=== PATIENT | female | born 1970 | race Caucasian/White ===

== ENCOUNTER 2019-04-22 18:55 | Emergency (ER) | payer MEDICARE, MEDICAID, SELFPAY | END 2019-04-22 20:05 | disposition home or self-care (01) | PROVIDERS: Emergency Provider Emergency Medicine; Visit Provider Emergency Medicine | DX: T82.898A Other specified complication of vascular prosthetic devices, implants and grafts, initial encounter (principal); Z91.040 Latex allergy status; Z88.0 Allergy status to penicillin | CPT/HCPCS: 96372; 99284; J0690 ==

== ENCOUNTER 2019-05-19 19:08 | Emergency (ER) | payer MEDICARE, MEDICAID, SELFPAY ==
[2019-05-19] VITALS (20 sets, daily range): BP systolic 113–185; BP diastolic 71–129; PULSE 103–152; RESP 15–40; TEMP 37.6–39.6; O2SAT 90–96; BMI 27.1
--- NOTE | 2019-05-19 19:21 | ED_ITS ---
Entered by Esperanza Link, acting as scribe for Bruce Noel DO May 19, 2019 19:08 HPI - Fever General: Chief Complaint: Fever Stated Complaint: fever Time Seen by Provider: 05/19/19 19:26 Source: patient and EMS Mode of arrival: EMS Limitations: no limitations History of Present Illness: HPI Narrative: 49 yo f came to the er by [facility] for fever. Onset was today. Pt states that she has a fever, head and neck pain, nauseated and has had some chest pain. Onset was 4 hours ago. Pt states that she has the chills as well. MD elicited complaint: fever Pertinent past history: sepsis Onset (ago): hour(s) (4 hours ago) Associated symptoms: Reports chills, chest pain, nausea and other (head and neck pain ); Deny abdominal pain, confusion, cough, dysuria, headache(s), sinus pain or vomiting Treatments prior to arrival fever: other (norco) Review of Systems Const: Reports: chills Eyes: Denies: change in vision or blurry vision ENMT: Denies: facial/sinus pain Card: Reports: chest pain Resp: Denies: shortness of breath, productive cough, non-productive cough or wheezing GI: Reports: nausea; Denies: abdominal pain or vomiting : Denies: painful urination Musc: Denies: neck pain, back pain, redness or joint warmth Skin/Breast: Denies: rash, itching or redness Neuro: Denies: headache or confusion Psych: Denies: anxiety, visual hallucinations or auditory hallucinations PFSH ED PFSH: Statuses (acute, chronic, etc) shown below reflect problem list status as previously entered and may not be historically accurate Medical History (Updated 05/19/19 @ 23:52 by Bruce Noel DO) Bunion (Acute) Degenerative joint disease (Acute) DVT (deep venous thrombosis) (Acute) FH: cholecystectomy (Acute) Hernia (Acute) Interstitial cystitis (Acute) Neuropathy (Acute) Ovarian cyst (Acute) Peripheral neuropathy (Acute) Pulmonary embolism (Acute) Sepsis (Acute) Spastic colon (Acute) Surgical History (Updated 05/19/19 @ 19:37 by Esperanza Link) History of bilateral salpingectomy (Acute) History of hernia repair (Acute) History of knee surgery (Acute) History of laparoscopy (Acute) History of oophorectomy (Acute) History of salpingectomy (Acute) Hx of appendectomy (Acute) Physical Exam Const: GENERAL APPEARANCE: well developed ORIENTATION/CONSCIOUSNESS: Yes oriented to person, Yes oriented to place and Yes oriented to time HENMT: COMMON NORMALS: normocephalic, external ears normal and external nose normal HEAD & SCALP: normocephalic; no scalp tenderness FACE & SINUS: normal facial exam NOSE: external nose normal and no nasal discharge EXTERNAL EAR: Yes external ears normal THROAT: posterior oropharynx normal Eye: COMMON NORMALS: PERRL, EOMs intact bilaterally and conjunctivae normal EYELID: eyelids normal CONJUNCTIVA: Yes conjunctivae normal PUPIL: Yes PERRL Neck/C-Spine: COMMON NORMALS: full ROM and no meningeal signs GENERAL: No tracheal deviation Chest: COMMONS NORMALS: inspection of chest normal CHEST: No tenderness Resp: COMMON NORMALS: clear to auscultation bilaterally EFFORT & INSPECTION: No tachypneic, No respiratory distress, No retractions, No uses accessory muscles and No tracheal deviation AUSCULTATION: clear to auscultation bilaterally, no rhonchi, no wheezes and lung sounds not diminished Cardio: COMMON NORMALS: regular rhythm; negative for regular rate RATE: abnormal rate and tachycardic RHYTHM: regular rhythm HEART SOUNDS: no murmurs PERIPHERAL PULSES: radial pulses present GI: INSPECTION: No abdominal distension AUSCULTATION: No hyperactive bowel sounds and No hypoactive bowel sounds PALPATION: No guarding and No rigid PERCUSSION: no dullness to percussion and no tympanic to percussion : COMMON NORMALS: Yes no CVA tenderness BLADDER/KIDNEY EXAM: Yes no CVA tenderness Back/Pelvis: COMMON NORMALS: no CVA tenderness Neuro: SENSORIUM/ORIENTATION: Yes oriented to person, Yes oriented to place and Yes oriented to time MENINGEAL SIGNS: Yes no meningeal signs and No nuccal rigidity SPEECH: speech normal MOTOR EXAM: other (moves all extremities well) Psych: COMMON NORMALS: mental status grossly normal Skin: COMMON NORMALS: no rashes or lesions noted GENERAL SKIN EXAM: no rashes or lesions noted OTHER: Dry mucous membrane Course ED course: 49-year-old female with multiple medical problems comes in with a fever. She has pain all over. She does not have any meningeal signs. Fever was 103 on arrival, reduced to 99.7 with Tylenol. Her symptoms are improved. She is had a liter and a half of fluid. Her white count is 6.2. No left shift. Flu swabs are negative. Chest x-ray is negative, urine negative. She has had sepsis in the past. She does have an indwelling line. It does not appear infected. Blood cultures have been drawn and are pending. She will go home on doxycycline. Vital Signs: Vital signs: Vital Signs Temperature 99.7 F H 05/19/19 23:21 Pulse Rate 100 05/20/19 00:15 Respiratory Rate 16 05/20/19 00:15 Blood Pressure 113/71 05/20/19 00:15 Pulse Oximetry 99 05/20/19 00:15 MDM - Fever Lab Data: Labs: Lab Results 05/19/19 05/19/19 05/19/19 Range/Units 20:00 20:00 20:00 WBC 6.2 (4.0-10.0) 10^3/ uL RBC 4.57 (4.1-5.3) 10^6/u L Hgb 14.1 (11.5-15.3) g/dL Hct 41.8 (37.0-47.0) % MCV 91.5 (81-99) fL MCH 30.9 (28.0-34.0) pg MCHC 33.7 (30.0-36.0) g/dL RDW 12.0 L (12.1-15.1) % Plt Count 165 (130-400) 10^3/c mm MPV 10.2 (7.4-10.4) fL Neut % (Auto) 88.2 % Lymph % (Auto) 7.6 % [place] % (Auto) 3.4 % Eos % (Auto) 0.3 % Baso % (Auto) 0.2 % Neut # (Auto) 5.5 (1.8-7.7) 10^3/u L Lymph # (Auto) 0.5 L (0.8-4.8) 10^3/u L [place] # (Auto) 0.2 (0.2-0.9) 10^3/u L Eos # (Auto) 0.0 (0.0-0.8) 10^3/u L Baso # (Auto) 0.0 (0.0-0.1) 10^3/u L Nucleated RBC % (a uto) 0 % Nucleated RBCs # 0.0 /100WBC Sodium 139 (136-145) mmol/L Potassium 4.0 (3.5-5.1) mmol/L Chloride 100 (98-107) mmol/L Carbon Dioxide 22 (22-29) mmol/L Anion Gap 21.0 H (5-19) BUN 8 (6-20) mg/dL Creatinine 0.7 (0.5-0.9) mg/dL GFR Calculation 89.3 L (90-130) mL/min Glucose 124 H (74-109) mg/dL Lactate 2.3 H (0.5-2.2) mmol/L Calcium 10.2 (8.5-10.5) mg/dL Total Bilirubin 0.4 (0.15-1.2) mg/dL AST 13 (0-32) U/L ALT 23 (0-33) U/L Alkaline Phosphata se 100 (35-105) IU/L C-Reactive Protein 6.5 H (0.0-4.9) mg/L Total Protein 8.2 (6.6-8.7) g/dL Albumin 4.7 (3.5-5.2) g/dL Globulin 3.5 (1.3-4.6) g/dL Urine Color (Yellow) Urine Appearance (CLEAR) Urine pH (5-7) Ur Specific Gravit y (1.005-1.030) Urine Protein (Negative) Urine Glucose (UA) (Normal) Urine Ketones (Negative) Urine Occult Blood (Negative) Urine Nitrate (Negative) Urine Bilirubin (NEGATIVE) Urine Urobilinogen (Negative) mg/dL Ur Leukocyte Nisha ase (Negative) Influenza Type A A g (Negative) POC Influenza B Ag (Negative) 05/19/19 05/19/19 Range/Units 21:02 21:45 WBC (4.0-10.0) 10^3/ uL RBC (4.1-5.3) 10^6/u L Hgb (11.5-15.3) g/dL Hct (37.0-47.0) % MCV (81-99) fL MCH (28.0-34.0) pg MCHC (30.0-36.0) g/dL RDW (12.1-15.1) % Plt Count (130-400) 10^3/c mm MPV (7.4-10.4) fL Neut % (Auto) % Lymph % (Auto) % [place] % (Auto) % Eos % (Auto) % Baso % (Auto) % Neut # (Auto) (1.8-7.7) 10^3/u L Lymph # (Auto) (0.8-4.8) 10^3/u L [place] # (Auto) (0.2-0.9) 10^3/u L Eos # (Auto) (0.0-0.8) 10^3/u L Baso # (Auto) (0.0-0.1) 10^3/u L Nucleated RBC % (a uto) % Nucleated RBCs # /100WBC Sodium (136-145) mmol/L Potassium (3.5-5.1) mmol/L Chloride (98-107) mmol/L Carbon Dioxide (22-29) mmol/L Anion Gap (5-19) BUN (6-20) mg/dL Creatinine (0.5-0.9) mg/dL GFR Calculation (90-130) mL/min Glucose (74-109) mg/dL Lactate (0.5-2.2) mmol/L Calcium (8.5-10.5) mg/dL Total Bilirubin (0.15-1.2) mg/dL AST (0-32) U/L ALT (0-33) U/L Alkaline Phosphata se (35-105) IU/L C-Reactive Protein (0.0-4.9) mg/L Total Protein (6.6-8.7) g/dL Albumin (3.5-5.2) g/dL Globulin (1.3-4.6) g/dL Urine Color Yellow (Yellow) Urine Appearance Clear (CLEAR) Urine pH 5 (5-7) Ur Specific Gravit y 1.015 (1.005-1.030) Urine Protein Neg (Negative) Urine Glucose (UA) Norm (Normal) Urine Ketones Negative (Negative) Urine Occult Blood Neg (Negative) Urine Nitrate Negative (Negative) Urine Bilirubin Neg (NEGATIVE) Urine Urobilinogen Norm (Negative) mg/dL Ur Leukocyte Nisha ase Negative (Negative) Influenza Type A A g Negative (Negative) POC Influenza B Ag Negative (Negative) Discharge Plan Discharge Patient Disposition: Home, Self-Care Clinical Impression: Febrile illness, acute Condition: Stable Prescriptions: New doxycycline hyclate 100 mg capsule 100 mg PO Q12H 10 Days Qty: 20 RF: 0 No Action oxybutynin chloride 10 mg Tablet Extended Release 24hr 10 mg PO DAILY RF: 0 metoprolol succinate 50 mg Tablet Extended Release 24 Hr 50 mg PO DAILY RF: 0 ondansetron HCl 4 mg Tablet 4 mg PO Q6H PRN (Reason: Nausea) RF: 0 clonazepam 0.5 mg Tablet 0.5 mg PO BID RF: 0 hydrocodone-acetaminophen 10-325 mg Tablet 1 tab PO Q6H PRN (Reason: Pain) RF: 0 levothyroxine 75 mcg Tablet 75 mcg PO DAILY RF: 0 promethazine 25 mg Tablet 25 mg PO Q4-5H PRN (Reason: Nausea) RF: 0 tizanidine 4 mg Capsule 4 mg PO QID PRN (Reason: Sleep) RF: 0 Discharge Orders: Discharge Order (Routine); Ordered 05/19/19 Ordered By: Bruce Noel Referrals: Xavier Salmeron MD [Primary Care Provider] - 1-3 days Discharge Diet: Advance as tolerated Discharge Activity: Increase activity as tolerated Patient Instructions: Fever - Adult Activity Restrictions/Additional Instructions: Check your temperature frequently. Treat by alternating Tylenol and ibuprofen. Make sure you are taking in plenty of fluids. Antibiotics as directed. Return for fever despite 2-3 doses of antibiotics at home vomiting liquids or medications, mental status changes, other concerning symptoms. Discharge Date/Time: 05/20/19 00:16 Coding Level of Care Code ED [employer]er for Chg Fwd The documentation recorded by the Nikolay ambrocio Stephanie Lyn, accurately reflects the service I personally performed and the decisions made by Bert wheeler Jeremy John, DO May 19, 2019 19:08
--- NOTE | 2019-05-19 19:26 | XR_ITS ---
WS: [id number] CHEST XRAY TECHNIQUE: Portable chest. CLINICAL INFORMATION: fever COMPARISON: 9 019 FINDINGS: Stable right IJ Groshong catheter. Heart: Normal cardiac silhouette. Lungs: Chronic emphysematous changes. No acute pulmonary infiltrates. Surgical clips left neck. Bones: Normal visualized bony structures. XR/XR chest 1V portable [id number] IMPRESSION: 1. Stable right IJ Groshong catheter. 2. Chest otherwise unremarkable.
--- NOTE | 2019-05-19 19:28 | ECG_ITS ---
Measurements Intervals [place] Rate: 117 P: 65 TN: 100 QRS: 25 QRSD: 90 T: 28 QT: 320 QTc: 448 SINUS TACHYCARDIA WITH SHORT TN INTERVAL ABNORMAL RHYTHM ECG Compared to ECG 11/14/2018 15:51:26 Short TN interval now present Sinus rhythm no longer present T-wave abnormality no longer present Electronically Signed On 05-20-2019 17:51:34 [employer] TECHNICIAN by Kacey Urbina M.D. [email or web address]
[2019-05-19] MEDS: sodium chloride 0.9% 1,000 ML 999 ML IV ×2 (20:03→22:44)
[2019-05-19 20:06] LABS: Basophils % 0.2 %; Eosinophils % 0.3 %; Hematocrit 41.8 % (37.0-47.0); Hemoglobin 14.1 g/dL (11.5-15.3); Lymphocytes # 0.5 10^3/uL (0.8-4.8); Lymphocytes % 7.6 %; Mean Corpuscular HGB Conc 33.7 g/dL (30.0-36.0); Mean Corpuscular Hemoglobin 30.9 pg (28.0-34.0); Mean Corpuscular Volume 91.5 fL (81-99); Mean Platelet Volume 10.2 fL (7.4-10.4); Monocytes # 0.2 10^3/uL (0.2-0.9); Monocytes % 3.4 %; Neutrophils # 5.5 10^3/uL (1.8-7.7); Neutrophils % 88.2 %; Nucleated Red Blood Cells % 0 %; Platelet Count 165 10^3/cmm (130-400); Red Blood Count 4.57 10^6/uL (4.1-5.3); White Blood Count 6.2 10^3/uL (4.0-10.0)
[2019-05-19] MEDS: metoprolol tartrate 1 mg/1 mL SDV 5 mL 5 MG IV (20:06)
[2019-05-19] MEDS: acetaminophen 500 mg Tablet 1000 MG PO (20:06)
[2019-05-19] MEDS: ondansetron 2 mg/ML SDV 2 mL 4 MG IVP ×2 (20:13→22:44)
[2019-05-19 20:20] LABS: Alanine Aminotransferase 23 U/L (0-33); Albumin Level 4.7 g/dL (3.5-5.2); Alkaline Phosphatase 100 IU/L (35-105); Aspartate Amino Transferase 13 U/L (0-32); Blood Urea Nitrogen 8 mg/dL (6-20); C Reactive Protein 6.5 mg/L (0.0-4.9); Calcium 10.2 mg/dL (8.5-10.5); Carbon Dioxide 22 mmol/L (22-29); Chloride 100 mmol/L (98-107); Globulin 3.5 g/dL (1.3-4.6); Glomerular Filtration Rate 89.3 mL/min (90-130); Glucose 124 mg/dL (74-109); Lactate (Lactic Acid level) 2.3 mmol/L (0.5-2.2); Sodium 139 mmol/L (136-145); Total Bilirubin 0.4 mg/dL (0.15-1.2); Total Protein 8.2 g/dL (6.6-8.7)
[2019-05-19] MEDS: morphine 4 mg/mL SDV 1 mL IVP ×2 (20:30→22:43)
[2019-05-19 21:31] LABS: Influenza A by IFA Negative (Negative); Influenza B by IFA Negative (Negative)
[2019-05-19 22:40] LABS: Add Urine Microscopic? NO
[2019-05-19 22:49] LABS: Blood Urine Neg (Negative); Glucose Urine UA Norm (Normal); Ketones Urine Negative (Negative); Nitrate Urine Negative (Negative); Protein Urine Neg (Negative); Specific Gravity, Urine 1.015 (1.005-1.030); Urine Appearance Clear (CLEAR); Urine Color Yellow (Yellow); pH Urine 5 (5-7)
[2019-05-19 22:50] LABS: Bilirubin Urine Neg (NEGATIVE); Leukocyte Esterase Urine Negative (Negative); Urobilinogen Urine Norm (Negative)
[2019-05-20 00:15] VITALS: BP 113/71; PULSE 100; RESP 16; O2SAT 99
--- NOTE | 2019-05-21 05:33 | PC.NURSE ---
Lab called about blood culture, lab stated they will call back with another positive culture when read, Advised Dr. Jack of gram positive rods in 1 of 4 blood culture bottles, advised to wait for other culture to come back
== END 2019-05-20 00:16 | disposition home or self-care (01) ==
PROVIDERS: Emergency Provider Emergency Medicine; PCP Internal Medicine
DX: R50.9 Fever, unspecified (principal)
CPT/HCPCS: 36415; 71045; 80053; 81003; 83605; 85025; 86140; 87040; 87077; 87184; 87205; 87804; 93005; 96374; 99283; J2270; J2405; J3490; J7030

== ENCOUNTER 2019-05-21 10:21 | Inpatient (IN) | payer MEDICARE, MEDICAID, SELFPAY ==
[2019-05-21] VITALS (10 sets, daily range): BP systolic 111–132; BP diastolic 73–84; PULSE 70–144; RESP 16–22; TEMP 37–39.5; O2SAT 92–99; BMI 27.3
--- NOTE | 2019-05-21 10:57 | XR_ITS ---
WS: [id number] PORTABLE CHEST HISTORY: fever COMPARISON: 05/19/2019 RIGHT IJ Groshong catheter is again identified. Lungs remain clear. No mediastinal widening. Surgical sutures are noted within the LEFT neck. No pleural effusion or pneu mothorax. Cardiac size: Normal. Mediastinum/Aorta: Normal mediastinum. No osseous abnormality seen. XR/XR chest 1V portable [id number] IMPRESSION: Stable chest with no acute cardiopulmonary disease.
--- NOTE | 2019-05-21 11:03 | ED_ITS ---
HPI - Fever General: Chief Complaint: Fever Stated Complaint: Fever/V/Pain all over Time Seen by Provider: 05/21/19 10:51 History of Present Illness: HPI Narrative: Patient comes in today for high fever. Patient was referred to the emergency department by Dr. Alegria for concerns that her central line may be infected. Patient has a central line in place due to gastroparesis and need for TPN. Patient reports only being able to hold down 1 of the doxycycline that was prescribed on the [address] Noel. Patient reports persistent nausea and vomiting since being seen in the ER for her fever at that time. Patient appears unwell. Patient appears in no pain. MD elicited complaint: fever Associated symptoms: Reports nausea and vomiting Review of Systems General: Reports: 10 or more systems reviewed and unremarkable except in HPI and below Const: Reports: fever GI: Reports: nausea and vomiting PFSH ED PFSH: Statuses (acute, chronic, etc) shown below reflect problem list status as previously entered and may not be historically accurate Medical History (Updated 05/21/19 @ 13:30 by MEL Baker) Bunion (Acute) Degenerative joint disease (Acute) DVT (deep venous thrombosis) (Acute) FH: cholecystectomy (Acute) Hernia (Acute) Interstitial cystitis (Acute) Neuropathy (Acute) Ovarian cyst (Acute) Peripheral neuropathy (Acute) Pulmonary embolism (Acute) Sepsis (Acute) Spastic colon (Acute) Surgical History (Updated 05/19/19 @ 19:37 by Esperanza Link) History of bilateral salpingectomy (Acute) History of hernia repair (Acute) History of knee surgery (Acute) History of laparoscopy (Acute) History of oophorectomy (Acute) History of salpingectomy (Acute) Hx of appendectomy (Acute) Social History Smoking and tobacco status: current every day smoker Physical Exam Const: COMMON NORMALS: no apparent distress and oriented x3 GENERAL APPEARANCE: cooperative HENMT: COMMON NORMALS: normocephalic, external ears normal, EAC's normal, TM's normal bilaterally and external nose normal HEAD & SCALP: normal to inspection and normocephalic FACE & SINUS: normal facial exam NOSE: external nose normal GENERAL EAR: hearing not grossly impaired EXTERNAL EAR: Yes external ears normal EXTERNAL AUDITORY CANAL: EAC's normal TYMPANIC MEMBRANE: TM's normal bilaterally MOUTH: oral and palatal mucosa normal THROAT: posterior oropharynx normal Eye: COMMON NORMALS: PERRL and EOMs intact bilaterally PUPIL: Yes PERRL Neck/C-Spine: COMMON NORMALS: full ROM and no lymphadenopathy Lymph: LYMPHATIC: no lymphedema noted Chest: COMMONS NORMALS: inspection of chest normal and palpation of chest normal Resp: COMMON NORMALS: normal respiratory effort and clear to auscultation bilaterally AUSCULTATION: clear to auscultation bilaterally Cardio: COMMON NORMALS: regular rate and regular rhythm RATE: regular rate RHYTHM: regular rhythm GI: COMMON NORMALS: normal to inspection, nondistended, normoactive bowel sounds and non-tender : COMMON NORMALS: Yes no CVA tenderness BLADDER/KIDNEY EXAM: Yes no CVA tenderness Back/Pelvis: COMMON NORMALS: no CVA tenderness and thoracic and lumbar spine normal to inspection Extremity: COMMON NORMALS: normal to inspection GENERAL: No edema Neuro: COMMON NORMALS: oriented x3, moves all extremities and no focal motor deficits Psych: COMMON NORMALS: mental status grossly normal and cooperative Skin: COMMON NORMALS: no rashes or lesions noted GENERAL SKIN EXAM: no rashes or lesions noted Course ED course: 1115, reviewed with Dr. Piper, recommended Levaquin for IV antibiotic due to allergy to vancomycin and penicillin. Patient alert and oriented. Patient appears mildly unwell. 1140, review of record note preliminary blood culture from 05/19 note gram positive walter. wjw 1157, paged Dr. Alegria to discuss central line and his recommendation for further treatment. wjw 1235, reviewed with Dr. Alegria who agreed that removal of central line be done, wjw 1253, talked with Dr. Maguire whom agreed to admission for patient to inpatient. wjw 1315, attempted removal of central line met resistance with suggestion of adhesion. Dr. Piper evaluated and attempted removal with no success. Dr. Alegria consulted and will see patient later today in hospital for removal. Dr. Maguire notified for admission and update on difficulty with removal of central line. wjw Vital Signs: Vital signs: Vital Signs Temperature 102.5 F H 05/21/19 12:28 Pulse Rate 125 H 05/21/19 12:00 Respiratory Rate 16 05/21/19 13:00 Blood Pressure 132/84 05/21/19 12:00 Pulse Oximetry 92 05/21/19 12:00 MDM - Fever MDM Narrative: Medical decision making narrative: Patient comes in today for complaints of persistent fever and nausea with vomiting. Patient appears mildly unwell. Exam notes respirations are even lungs are clear to auscultation. Vital signs are stable with some mild tachycardia and fever. Abdomen is soft and nontender. Skin is warm and dry. Differential diagnosis includes sepsis, infection in the central line, pneumonia, urinary tract infection, febrile illness of unknown origin. Blood cultures were collected. Reviewed exam with Dr. Piper who recommended admission for possible septicemia due to central line. Dr. Alegria was consulted for assistance to remove central line due to adhesions. Dr. Staton was consulted for hospitalist care and admission. Patient needs admission for IV antibiotics, and surgical consult for removal of central line. Patient will need IV fluids and repeat laboratory evaluation. Lab Data: Labs: Lab Results 05/21/19 05/21/19 05/21/19 Range/Units 11:02 11:02 11:02 WBC (4.0-10.0) 10^3/ uL RBC (4.1-5.3) 10^6/u L Hgb (11.5-15.3) g/dL Hct (37.0-47.0) % MCV (81-99) fL MCH (28.0-34.0) pg MCHC (30.0-36.0) g/dL RDW (12.1-15.1) % Plt Count (130-400) 10^3/c mm MPV (7.4-10.4) fL Neut % (Auto) % Lymph % (Auto) % [place] % (Auto) % Eos % (Auto) % Baso % (Auto) % Neut # (Auto) (1.8-7.7) 10^3/u L Lymph # (Auto) (0.8-4.8) 10^3/u L [place] # (Auto) (0.2-0.9) 10^3/u L Eos # (Auto) (0.0-0.8) 10^3/u L Baso # (Auto) (0.0-0.1) 10^3/u L Nucleated RBC % (a uto) % Nucleated RBCs # /100WBC Sodium (136-145) mmol/L Potassium (3.5-5.1) mmol/L Chloride (98-107) mmol/L Carbon Dioxide (22-29) mmol/L Anion Gap (5-19) BUN (6-20) mg/dL Creatinine (0.5-0.9) mg/dL GFR Calculation (90-130) mL/min Glucose (74-109) mg/dL Lactic Acid (0.5-2.2) mmol/L Calcium (8.5-10.5) mg/dL Total Bilirubin (0.15-1.2) mg/dL AST (0-32) U/L ALT (0-33) U/L Alkaline Phosphata se (35-105) IU/L Total Protein (6.6-8.7) g/dL Albumin (3.5-5.2) g/dL Globulin (1.3-4.6) g/dL Urine Color Yellow (Yellow) Urine Appearance Clear (CLEAR) Urine pH 5.0 (5-7) Ur Specific Gravit y 1.010 (1.005-1.030) Urine Protein Neg (Negative) Urine Glucose (UA) Norm (Normal) Urine Ketones Negative (Negative) Urine Occult Blood Neg (Negative) Urine Nitrate Negative (Negative) Urine Bilirubin Neg (NEGATIVE) Urine Urobilinogen Norm (Negative) mg/dL Ur Leukocyte Nisha ase Negative (Negative) Urine RBC 0-4 H (0-2) /hpf Urine WBC None (0-5) /hpf Ur Squamous Epith Cells 10-15 H (0-5) Urine Bacteria 1+ H (NONE) Urine Mucus 1+ Influenza Type A A g Negative (Negative) POC Influenza B Ag Negative (Negative) Group A Strep Rapi d Negative (Negative) 05/21/19 05/21/19 05/21/19 Range/Units 11:17 11:17 12:18 WBC 5.5 (4.0-10.0) 10^3/ uL RBC 4.55 (4.1-5.3) 10^6/u L Hgb 13.9 (11.5-15.3) g/dL Hct 42.1 (37.0-47.0) % MCV 92.5 (81-99) fL MCH 30.5 (28.0-34.0) pg MCHC 33.0 (30.0-36.0) g/dL RDW 12.2 (12.1-15.1) % Plt Count 103 L (130-400) 10^3/c mm MPV 10.9 H (7.4-10.4) fL Neut % (Auto) 88.0 % Lymph % (Auto) 7.0 % [place] % (Auto) 4.4 % Eos % (Auto) 0.2 % Baso % (Auto) 0.2 % Neut # (Auto) 4.8 (1.8-7.7) 10^3/u L Lymph # (Auto) 0.4 L (0.8-4.8) 10^3/u L [place] # (Auto) 0.2 (0.2-0.9) 10^3/u L Eos # (Auto) 0.0 (0.0-0.8) 10^3/u L Baso # (Auto) 0.0 (0.0-0.1) 10^3/u L Nucleated RBC % (a uto) 0 % Nucleated RBCs # 0.0 /100WBC Sodium 136 (136-145) mmol/L Potassium 4.5 (3.5-5.1) mmol/L Chloride 100 (98-107) mmol/L Carbon Dioxide 21 L (22-29) mmol/L Anion Gap 19.5 H (5-19) BUN 8 (6-20) mg/dL Creatinine 0.6 (0.5-0.9) mg/dL GFR Calculation 106.7 (90-130) mL/min Glucose 130 H (74-109) mg/dL Lactic Acid 0.6 (0.5-2.2) mmol/L Calcium 9.9 (8.5-10.5) mg/dL Total Bilirubin 0.6 (0.15-1.2) mg/dL AST 17 (0-32) U/L ALT 25 (0-33) U/L Alkaline Phosphata se 84 (35-105) IU/L Total Protein 8.2 (6.6-8.7) g/dL Albumin 3.9 (3.5-5.2) g/dL Globulin 4.3 (1.3-4.6) g/dL Urine Color (Yellow) Urine Appearance (CLEAR) Urine pH (5-7) Ur Specific Gravit y (1.005-1.030) Urine Protein (Negative) Urine Glucose (UA) (Normal) Urine Ketones (Negative) Urine Occult Blood (Negative) Urine Nitrate (Negative) Urine Bilirubin (NEGATIVE) Urine Urobilinogen (Negative) mg/dL Ur Leukocyte Nisha ase (Negative) Urine RBC (0-2) /hpf Urine WBC (0-5) /hpf Ur Squamous Epith Cells (0-5) Urine Bacteria (NONE) Urine Mucus Influenza Type A A g (Negative) POC Influenza B Ag (Negative) Group A Strep Rapi d (Negative) Discharge Plan Discharge Patient Disposition: Admitted As Inpatient Clinical Impression: Sepsis Qualifiers: Sepsis type: sepsis due to unspecified organism Sepsis acute organ dysfunction status: without acute organ dysfunction Qualified Code(s): A41.9 - Sepsis, unspecified organism Condition: Stable Referrals: Xavier Salmeron MD [Primary Care Provider] - Coding Level of Care Code ED Maintenance Of Way Superintendent for Chg Fwd Exam Problem Focused
[2019-05-21 11:29] LABS: Basophils % 0.2 %; Eosinophils % 0.2 %; Hematocrit 42.1 % (37.0-47.0); Hemoglobin 13.9 g/dL (11.5-15.3); Lymphocytes # 0.4 10^3/uL (0.8-4.8); Mean Corpuscular Hemoglobin 30.5 pg (28.0-34.0); Mean Corpuscular Volume 92.5 fL (81-99); Mean Platelet Volume 10.9 fL (7.4-10.4); Monocytes # 0.2 10^3/uL (0.2-0.9); Monocytes % 4.4 %; Neutrophils # 4.8 10^3/uL (1.8-7.7); Nucleated Red Blood Cells % 0 %; Platelet Count 103 10^3/cmm (130-400); Red Blood Count 4.55 10^6/uL (4.1-5.3); Red Cell Distribution Width 12.2 % (12.1-15.1); White Blood Count 5.5 10^3/uL (4.0-10.0)
[2019-05-21 11:43] LABS: Alanine Aminotransferase 25 U/L (0-33); Albumin Level 3.9 g/dL (3.5-5.2); Alkaline Phosphatase 84 IU/L (35-105); Anion Gap 19.5 (5-19); Blood Urea Nitrogen 8 mg/dL (6-20); Calcium 9.9 mg/dL (8.5-10.5); Carbon Dioxide 21 mmol/L (22-29); Chloride 100 mmol/L (98-107); Globulin 4.3 g/dL (1.3-4.6); Glomerular Filtration Rate 106.7 mL/min (90-130); Glucose 130 mg/dL (74-109); Potassium 4.5 mmol/L (3.5-5.1); Sodium 136 mmol/L (136-145); Total Bilirubin 0.6 mg/dL (0.15-1.2); Total Protein 8.2 g/dL (6.6-8.7)
[2019-05-21] MEDS: sodium chloride 0.9% 1,000 ML 999 ML IV ×2 (11:43→13:00)
[2019-05-21] MEDS: levofloxacin-dextrose 5 % 750 MG/150 ML PREMIX 100 MG IV (11:44)
[2019-05-21] MEDS: ketorolac 30 mg/mL INJ 15 MG IVP (11:44)
[2019-05-21] MEDS: ondansetron 2 mg/ML SDV 2 mL 4 MG IVP ×3 (11:44→23:20)
[2019-05-21] MEDS: fentaNYL 50 mcg/mL INJ 2mL 25 MCG IVP (11:44)
[2019-05-21 11:49] LABS: Aspartate Amino Transferase 17 U/L (0-32)
[2019-05-21 11:50] LABS: Bilirubin Urine Neg (NEGATIVE); Blood Urine Neg (Negative); Glucose Urine UA Norm (Normal); Ketones Urine Negative (Negative); Leukocyte Esterase Urine Negative (Negative); Nitrate Urine Negative (Negative); Protein Urine Neg (Negative); Urine Appearance Clear (CLEAR); Urine Color Yellow (Yellow); Urobilinogen Urine Norm (Negative)
[2019-05-21 11:52] LABS: Add Urine Culture? No; Bacteria Urine 1+; Mucus Urine 1+; RBC Urine 0-4 /hpf (0-2)
[2019-05-21 11:56] LABS: Rapid Strep A Test Negative (Negative)
[2019-05-21 12:08] LABS: Influenza A by IFA Negative (Negative); Influenza B by IFA Negative (Negative)
[2019-05-21 12:46] LABS: Lactic Sepsis W/Reflex 0.6 mmol/L (0.5-2.2)
[2019-05-21] MEDS: fentaNYL 50 mcg/mL INJ 2mL IVP (13:00)
--- NOTE | 2019-05-21 13:56 | PM.HP ---
Providers/Chief Complaint Primary Care Provider: Xavier Salmeron MD Chief Complaint: Fever/V/Pain all over History of Present Illness Bing Chatman is a 49 year old female with past medical history of gastroparesis, frequent episodes of dehydration, intermittent hypotension, hypertension for which usually takes metoprolol and lisinopril, PE and DVT, on chronic anticoagulation, recurrent episodes of sepsis in the past because of port infections. On review of her culture history she has had infections with Enterobacter, MRSA, micrococcus with most recent infection last year in June. Today patient comes to the ER complaining of high-grade fevers with nausea and vomiting along with chills and [place] since Monday. Patient complains of generalized myalgia along with feeling weak since Monday. She states this Monday when she was changing the dressing of her port she expressed some foul-smelling greenish colored fluid from the port entry site. Patient has a central light port which was placed for her in July 2018 for fluid replacement at home. In July patient was also on TPN but has not been on TPN for last 7 to 8 months. Patient denies of having any dizziness, loss of consciousness, dysuria, change in her bowel movements, abdominal pain, swelling in any of her limbs, dizziness, headache, photophobia. Patient states she has not been able to take her medications for over a month as she ran out of the medications. Patient is struggling to find a primary care physician. Review of Systems Const: Reports: fever, chills, body aches, malaise and night sweats; Denies: change in appetite, diaphoresis, change in sleep pattern, daytime sleepiness or snoring Eyes: Denies: change in vision, blurry vision, photophobia, eye discomfort or eye discharge ENMT: Denies: throat pain, enlarged tonsils, hoarseness, mouth pain, oral sores/lesions, dry mouth, tinnitus, nasal congestion or post nasal drip Card: Reports: palpitations; Denies: chest pain, irregular heart rhythm, edema, swelling of feet/ankles, lightheadedness, syncope, pre-syncope, shortness of breath on exertion, shortness of breath when lying down, leg pain with exertion or bluish discoloration of hands/feet Resp: Denies: shortness of breath, productive cough, non-productive cough, wheezing, stridor, pain on inspiration, change in phlegm color, coughing up blood or chest congestion GI: Reports: abdominal pain, nausea, vomiting and heartburn/indigestion; Denies: vomiting blood, coffee grounds in vomit, difficulty swallowing, diarrhea, constipation, bloating, cramping, change in bowel habits, painful bowel movements, blood in stool or black tarry stool : Denies: flank pain, painful urination, urinary frequency, urinary urgency, urinary hesitancy, nighttime urination or blood in urine Musc: Denies: neck pain, back pain, extremity pain, joint pain, joint swelling, redness, joint stiffness or limited range of motion Neuro: Denies: headache, numbness in extremities, weakness in extremities, changes in sensation, lack of coordination, difficulty walking, frequent falls, dizziness, vertigo, confusion, slurred speech, difficulty communicating thoughts or seizure-like activity Psych: Reports: anxiety; Denies: depression, mood swings, panic attacks, hopelessness or irritability Endo: Denies: excessive urination, excessive thirst, tired all the time, cold intolerance, excessive sweating, flushing or heat intolerance Adolph/Lymph: Denies: easy bruising or easy bleeding All/Imm: Denies: tongue swelling, facial swelling or acute wheezing Medications/Allergies Home Medications Medication Instructions Recorded Confirmed Last Taken Type apixaban [Eliquis] 5 mg PO BID 05/21/19 05/21/19 Unknown History lisinopril 40 mg PO DAILY 05/21/19 05/21/19 Unknown History omeprazole 40 mg PO QAM 05/21/19 05/21/19 05/19/19 History Allergies Allergy/AdvReac Type Severity Reaction Status Date / Time adhesive tape Allergy ALGY-Hives Verified 05/19/19 19:32 clindamycin Allergy ALGY-Hives Verified 05/19/19 19:32 latex Allergy ALGY-Hives Verified 05/19/19 19:32 metronidazole [From Flagyl] Allergy ALGY-Hives Verified 05/19/19 19:32 Penicillins Allergy ALGY-Anaphy Verified 05/19/19 19:32 laxis sumatriptan [From Imitrex] Allergy ALGY-Anaphy Verified 05/19/19 19:32 laxis vancomycin Allergy ALGY-Hives Verified 05/19/19 19:32 PFSH Acute PFSH: Statuses (acute, chronic, etc) shown below reflect problem list status as previously entered and may not be historically accurate Medical History (Updated 05/21/19 @ 15:24 by Moreno Hollins MD) Bunion (Inactive) Degenerative joint disease (Inactive) DVT (deep venous thrombosis) (Acute) FH: cholecystectomy (Inactive) Gastroparesis (Acute) Interstitial cystitis (Acute) Ovarian cyst (Inactive) Peripheral neuropathy (Acute) Pulmonary embolism (Acute) Sepsis (Acute) Spastic colon (Inactive) Surgical History (Updated 05/21/19 @ 15:24 by Moreno Hollins MD) History of bilateral salpingectomy (Inactive) History of hernia repair (Inactive) History of knee surgery (Inactive) History of laparoscopy (Inactive) History of oophorectomy (Inactive) History of salpingectomy (Resolved) Hx of appendectomy (Inactive) Social History Smoking and tobacco status: current every day smoker Vitals/I&O/Wt Last Vital Signs Temp 102.5 F H 05/21/19 12:28 Pulse 125 H 05/21/19 12:00 Resp 16 05/21/19 13:00 BP 132/84 05/21/19 12:00 Pulse Ox 92 05/21/19 12:00 05/20/19 05/21/19 05/21/19 22:59 06:59 14:59 Intake Total 1150 / 1150 Balance 1150 / 1150 Weight last 48 hrs Weight 65.771 kg Physical Exam Narrative: EXAM NARRATIVE: General: No acute distress, AO x3, febrile HEENT: PERRLA, pupils bilaterally equal and reactive Chest: Normal vesicular breath sounds, no added sounds, equal good air entry bilaterally. Patient has a central line port present in the right side of her chest. Mild fluctuance present below the central line placement. CVS: S1-S2 regular, no murmurs, no tachycardia, no gallops, no rubs Abdomen: Soft, nontender, no organomegaly, bowel sounds present Neuro: No focal deficits, no facial deformity, AO x3, power 5/5 in all limbs Data : 05/21/19 11:17 05/21/19 11:17 Micro: Microbiology 05/21/19 11:17 Blood Culture - Preliminary Blood SPECIMEN COLLECTED 05/21/19 11:13 Blood Culture - Preliminary Blood SPECIMEN COLLECTED A&P Assessment and plan (1) Sepsis: Status: Acute Qualifiers: Sepsis acute organ dysfunction status: without acute organ dysfunction Sepsis type: sepsis due to unspecified organism Qualified Code(s): A41.9 - Sepsis, unspecified organism Code(s): A41.9 - Sepsis, unspecified organism (2) Central line infection: Status: Acute Code(s): T80.219A - Unspecified infection due to central venous catheter, initial encounter (3) Gastroparesis: Status: Acute Code(s): K31.84 - Gastroparesis Additional A&P Information Sepsis most likely due to central infection.: Patient is having high-grade fevers, source of infection most likely central line as resolving pus, tachycardia, tachypnea. Patient's blood pressure is stable so not in septic shock. We will start patient on D5 NS at 75 cc/h. Stat blood cultures, procalcitonin, urinalysis, urine culture, lactate. Central line was tried to be taken out by the ER physician but were unsuccessful. Dr. Alegria from surgery has already been contacted for central line removal. We will go for a prompt central line removal and sent the central line tip for further cultures. On reviewing the culture history will start patient on imipenem and vancomycin both renally dosed. Discussed with patient regarding vancomycin allergies. She states she used it around 6 years ago and at that time she had some hives. We will give vancomycin to try and can use Benadryl along with vancomycin. Gastroparesis: Unsure of the cause. We will continue with Zofran and promethazine as required. IV fluid resuscitation as described above. We will start her on bland diet. Hypothyroidism: Check TSH. Continue on home dose of levothyroxine. Hypertension: Blood pressures are within normal limits. For now continue patient on lisinopril and metoprolol at home dose. History of DVT and PE: Patient states she has not taken her medication for over a month. We will check lower limb Dopplers. Patient is not having any shortness of breath and her saturations are normal so we will hold off on any CTA for now. Resume Eliquis at 5 mg twice daily. Social service consult for PCP, outpatient medication. Full code Eliquis will help with DVT prophylaxis [place] brat diet. Attestations Medical Necessity Statement*: Would most likely need admission for more than 2 midnights for central line infection causing sepsis. Time Spent in Patient Care: Greater than 35 minutes Coding Level of Care Code Acute Railroad Track Inspector for Chg Fwd Diagnoses Sepsis A41.9 Sepsis acute organ dysfunction status: without acute organ dysfunction Sepsis type: sepsis due to unspecified organism Central line infection T80.219A Gastroparesis K31.84
--- NOTE | 2019-05-21 14:26 | USCV_ITS ---
Bing Chatman Age: 49 Gender: F : 1970 Exam Date: 05/21/2019 14:51 Ordering Phys: Moreno Hollins MD Technologist: Alex Estes [place]am [place] [facility] [place]: DVT HISTORY: DVT. PROCEDURES: Venous duplex imaging was performed in bilateral lower extremities. The following venous structures were evaluated: common femoral vein, profunda vein, proximal portion of the greater saphenous vein, superficial femoral vein, and the popliteal vein. In addition, the posterior tibial and peroneal trunk were evaluated. Serial compression, augmentation maneuvers, and spectral Doppler flow evaluation were performed. FINDINGS: Normal 2-D Doppler and augmentation and compressibility throughout the lower extremity venous structures. Additional imaging through the proximal calf veins also reveals no thrombus. Limited evaluation of the greater saphenous vein is patent with no thrombus. CONCLUSIONS No DVT bilateral lower extremities. Dr. Ashly Cruz DO (Electronically Signed) Final Date: 21 May 2019 15:41 S
--- NOTE | 2019-05-21 14:26 | USCV_ITS ---
Bing Chatman Age: 49 Gender: F : 1970 Exam Date: 05/21/2019 14:59 Ordering Phys: Moreno Hollins MD Technologist: Alex Estes Exam Location: [facility] – [place] Indication: IE BP: 132 / 83 HR: 112 Rhythm: Sinus Technical Quality: MEASUREMENTS (Male / Female) Normal Values 2D ECHO LV Diastolic Diameter PLAX 3.5 cm 4.2 - 5.9 / 3.9 - 5.3 cm LV Systolic Diameter PLAX 1.9 cm IVS Diastolic Thickness 0.8 cm 0.6 - 1.0 / 0.6 - 0.9 cm IVS Systolic Thickness 0.9 cm LVPW Diastolic Thickness 1.0 cm 0.6 - 1.0 / 0.6 - 0.9 cm LVPW Systolic Thickness 1.2 cm LVOT Diameter 2.0 cm LV Ejection Fraction 2D Teich 78.7 % LV Ejection Fraction MOD 2C 80.7 % LV Ejection Fraction 2C AL 81.5 % LA Diameter 2.6 cm LA Width 2.8 cm LA Height 4.0 cm RA Width 2.7 cm RA Height 3.6 cm Aorta at Sinotubular Diameter 1.7 cm M-MODE LV Diastolic Diameter MM 4.8 cm 4.2 - 5.9 / 3.9 - 5.3 cm LV Systolic Diameter MM 3.5 cm LV Ejection Fraction MM Teich 53.8 % IVS Diastolic Thickness MM 0.9 cm 0.6 - 1.0 / 0.6 - 0.9 cm IVS Systolic Thickness MM 1.4 cm LVPW Diastolic Thickness MM 1.1 cm 0.6 - 1.0 / 0.6 - 0.9 cm LVPW Systolic Thickness MM 1.7 cm RV Diastolic Diameter MM 1.2 cm Aortic Annulus Diameter 3.1 cm LA Ao Ratio MM 0.8 MV E Point Septal Separation 0.8 cm DOPPLER AV Peak Velocity 164.0 cm/s LVOT Peak Velocity 92.0 cm/s AV Area Cont Eq vti 1.6 cm squared AV Area Cont Eq pk 1.7 cm squared MV Area PHT 5.0 cm squared Mitral E to A Ratio 0.9 MV E' Velocity 16.0 cm/s Mitral E to MV E' Ratio 5.2 Mitral E to LV E' Lateral Ratio 5.4 Mitral E to LV E' Septal Ratio 5.1 TR Peak Velocity 196.0 cm/s TR Peak Gradient 15.3 mmHg TV Peak E Velocity 84.0 cm/s Right Atrial Pressure 3.0 mmHg Pulmonary Artery Systolic Pressu 18.4 mmHg FINDINGS Left Ventricle Normal left ventricular cavity size. Normal left ventricular systolic function. No regional wall motion abnormalities. Left ventricular ejection fraction is estimated at 55 %. Normal diastolic function. Right Ventricle The right ventricle is normal in size and function. Right Atrium The right atrium is normal in size. Left Atrium The left atrium is normal in size. Mitral Valve Structurally normal mitral valve without significant stenosis or prolapse. There is no mitral regurgitation. Aortic Valve Mild aortic valve calcification. No aortic valve stenosis. Trace aortic valve regurgitation. Tricuspid Valve Structurally normal tricuspid valve without significant stenosis or regurgitation. Pulmonary artery systolic pressure is normal. Pulmonic Valve Structurally normal pulmonic valve without significant stenosis. There is no pulmonic regurgitation. Pericardium Normal pericardium without effusion. Aorta Normal ascending aorta dimension. CONCLUSIONS 1-Normal left ventricular cavity size. Normal left ventricular systolic function. No regional wall motion abnormalities. Left ventricular ejection fraction is estimated at 55 %. Normal diastolic function. 2-Mild aortic valve calcification. No aortic valve stenosis. Trace aortic valve regurgitation. 3-Structurally normal mitral valve without significant stenosis or prolapse. There is no mitral regurgitation. 4-Structurally normal tricuspid valve without significant stenosis or regurgitation. Pulmonary artery systolic pressure is normal. 5-There is no pericardial effusion. 6-Pulmonary artery systolic pressure is within normal limits. 7-Right atrial pressure is around 5 mm of mercury. 8-There are no prior echocardiogram studies to compare. Kacey Urbina MD (Electronically Signed) Final Date: 21 May 2019 21:02 S
[2019-05-21] MEDS: LORazepam 2 mg/mL INJ 1 mL 1 MG IVP (14:56)
[2019-05-21 15:09] LABS: Lactic Sepsis W/Reflex 0.7 mmol/L (0.5-2.2)
[2019-05-21 15:15] LABS: Procalcitonin 2.52 ng/mL (0-0.5)
[2019-05-21 15:26] LABS: Iron 15 ug/dL (37-145); Percent Saturation 5.4 % (20-50); Total Iron Binding Capacity 274 mcg/dl; Unsaturated Iron Binding 259 ug/dL (112-347)
[2019-05-21] MEDS: diphenhydrAMINE 50 mg/mL SDV 1mL 12.5 MG IVP (16:41)
[2019-05-21] MEDS: HYDROcodone-acetaminophen 5-325 mg Tablet 1 TAB PO ×2 (16:42→21:16)
[2019-05-21] MEDS: CLONazepam 0.5 mg Tablet PO (18:43)
[2019-05-21] MEDS: apixaban 5 mg Tablet PO (18:43)
[2019-05-21] MEDS: promethazine 25 mg/mL SDV 1 mL 12.5 MG IM (19:41)
[2019-05-21 23:10] LABS: Thyroid Stimulating Hormone 1.23 uIU/mL (0.27-4.20)
[2019-05-21] MEDS: dextrose 5%-sod chloride 0.9% 1,000 ML 75 ML IV (23:13)
[2019-05-22] LABS: Amphetamines Screen Urine Negative (Negative); Barbiturates Screen Urine Negative (Negative); Benzodiazepines Screen Urine Negative (Negative); Cocaine Screen Urine Negative (Negative); Opiate Screen Urine Positive (Negative); PCP Screen Urine Negative (Negative); THC Screen Urine Negative (Negative)
[2019-05-22] MEDS: TRAMadol 50 mg Tablet PO (01:00)
[2019-05-22 01:30] VITALS: O2SAT 95
[2019-05-22 04:00] VITALS: BP 98/65; PULSE 83; RESP 22; TEMP 36.8; O2SAT 95
[2019-05-22] MEDS: HYDROcodone-acetaminophen 5-325 mg Tablet 1 TAB PO ×4 (05:08→20:45)
[2019-05-22] MEDS: promethazine 25 mg/mL SDV 1 mL 12.5 MG IM ×2 (05:24→20:44)
[2019-05-22 05:45] LABS: Alanine Aminotransferase 17 U/L (0-33); Albumin Level 3.1 g/dL (3.5-5.2); Alkaline Phosphatase 64 IU/L (35-105); Anion Gap 12.6 (5-19); Aspartate Amino Transferase 11 U/L (0-32); Blood Urea Nitrogen 10 mg/dL (6-20); Calcium 8.6 mg/dL (8.5-10.5); Carbon Dioxide 20 mmol/L (22-29); Chloride 107 mmol/L (98-107); Glomerular Filtration Rate 131.7 mL/min (90-130); Glucose 92 mg/dL (74-109); Potassium 3.6 mmol/L (3.5-5.1); Sodium 136 mmol/L (136-145); Total Bilirubin 0.3 mg/dL (0.15-1.2); Total Protein 6.1 g/dL (6.6-8.7)
[2019-05-22 06:16] LABS: Cholesterol 180 mg/dL (0-200); HDL Cholesterol 20 mg/dL (60-100); LDL Cholesterol Calculated 113 mg/dL (50-129); Triglycerides 236 mg/dL (0-150); VLDL Cholestrol Calculation 47 mg/dL (0-30)
[2019-05-22 07:42] VITALS: BP 118/80; PULSE 82; RESP 18; TEMP 36.4; O2SAT 95
[2019-05-22 08:10] LABS: Basophils % 0.4 %; Eosinophils % 0.4 %; Hematocrit 33.6 % (37.0-47.0); Lymphocytes # 0.8 10^3/uL (0.8-4.8); Lymphocytes % 28.9 %; Mean Corpuscular HGB Conc 32.7 g/dL (30.0-36.0); Mean Corpuscular Hemoglobin 31.6 pg (28.0-34.0); Mean Corpuscular Volume 96.6 fL (81-99); Mean Platelet Volume 10.6 fL (7.4-10.4); Monocytes # 0.2 10^3/uL (0.2-0.9); Monocytes % 8.5 %; Neutrophils # 1.8 10^3/uL (1.8-7.7); Neutrophils % 61.4 %; Nucleated Red Blood Cells % 0 %; Platelet Count 90 10^3/cmm (130-400); Red Blood Count 3.48 10^6/uL (4.1-5.3); Red Cell Distribution Width 12.4 % (12.1-15.1); White Blood Count 2.8 10^3/uL (4.0-10.0)
[2019-05-22] MEDS: levothyroxine 150 mcg Tablet 75 MCG PO (09:22)
[2019-05-22] MEDS: apixaban 5 mg Tablet PO ×2 (09:22→17:31)
[2019-05-22] MEDS: CLONazepam 0.5 mg Tablet PO ×2 (09:22→17:31)
[2019-05-22] MEDS: pantoprazole 40 mg SDV IVP (09:44)
[2019-05-22] MEDS: ondansetron 2 mg/ML SDV 2 mL 4 MG IVP ×2 (10:24→18:58)
[2019-05-22 10:56] VITALS: BP 130/87; PULSE 86; RESP 18; TEMP 37.1; O2SAT 96
[2019-05-22 15:05] VITALS: BP 115/76; PULSE 82; RESP 18; TEMP 37; O2SAT 97
--- NOTE | 2019-05-22 17:07 | PM.PN ---
Subjective Subjective: Interval history: No acute events overnight. T-max since last night is 99.9 at 10:15 PM. She states she is still nauseous but better. Patient states overall she is feeling a lot better now. Denies of having any headache, vomiting, abdominal pain, difficulty in breathing. Patient is due for removal of her port today in the afternoon by Dr. Alegria. Labs reviewed. 2 sets of blood cultures positive for GPC's. Medications: Reviewed: Yes Vitals/I&O/Wt Last Vital Signs Temp 98.6 F 05/22/19 15:05 Pulse 82 05/22/19 15:05 Resp 18 05/22/19 15:05 BP 115/76 05/22/19 15:05 Pulse Ox 97 05/22/19 15:05 05/22/19 05/22/19 05/22/19 06:59 14:59 22:59 Intake Total 400 / 2900 460 / 460 Balance 400 / 2900 460 / 460 Weight last 48 hrs Weight 69.57 kg Weight 65.771 kg Physical Exam Narrative: EXAM NARRATIVE: General: No acute distress, AO x3, febrile HEENT: PERRLA, pupils bilaterally equal and reactive Chest: Normal vesicular breath sounds, no added sounds, equal good air entry bilaterally. Patient has a central line port present in the right side of her chest. Mild fluctuance present below the central line placement. CVS: S1-S2 regular, no murmurs, no tachycardia, no gallops, no rubs Abdomen: Soft, nontender, no organomegaly, bowel sounds present Neuro: No focal deficits, no facial deformity, AO x3, power 5/5 in all limbs Urinary Catheter Management^: Garza: Cath Placed During This Visit: no Data : 05/22/19 07:40 05/22/19 05:00 Micro: Microbiology 05/21/19 11:13 Blood Culture - Preliminary Blood Gram positive cocci 05/22/19 13:10 Blood Culture - Preliminary Blood SPECIMEN COLLECTED 05/22/19 13:00 Blood Culture - Preliminary Blood SPECIMEN COLLECTED 05/21/19 11:17 Blood Culture - Preliminary Blood NEGATIVE TO DATE 05/21/19 11:02 Group A Streptococcus Rapid Screen - Preliminary Throat A&P Assessment and plan (1) Sepsis: Status: Acute Qualifiers: Sepsis acute organ dysfunction status: without acute organ dysfunction Sepsis type: sepsis due to unspecified organism Qualified Code(s): A41.9 - Sepsis, unspecified organism Code(s): A41.9 - Sepsis, unspecified organism (2) Central line infection: Status: Acute Code(s): T80.219A - Unspecified infection due to central venous catheter, initial encounter (3) Gastroparesis: Status: Acute Code(s): K31.84 - Gastroparesis Additional A&P Information Sepsis most likely due to central infection.: Patient is having high-grade fevers, source of infection most likely central line as resolving pus, tachycardia, tachypnea. Patient's blood pressure is stable so not in septic shock. Continue with fluid?D5 NS at 75 cc/h as patient does not have a good oral intake due to severe gastroparesis. Continue with vancomycin and imipenem at renally dosed. We will repeat blood cultures till patient have 2 sets of negative blood cultures. Port/central line will be removed today. Will request for central line tip to be sent for cultures. Continue with Tylenol for fever as needed. We will follow blood cultures and de-escalate antibiotics as needed. Patient is having pancytopenia today most likely due to severe sepsis. We will continue to monitor CBC daily. For now ANC is fair. Contact precautions for MRSA. Gastroparesis: Unsure of the cause. We will continue with Zofran and promethazine as required. IV fluid resuscitation as described above. Tolerating bland diet well. We will continue the same. Hypothyroidism: TSH failure. Continue on home dose of levothyroxine. Hypertension: Blood pressures are within normal limits. For now continue patient on lisinopril and metoprolol at home dose. History of DVT and PE: Patient states she has not taken her medication for over a month. Lower limb Dopplers negative for any DVT. Patient is not having any shortness of breath and her saturations are normal so we will hold off on any CTA for now. Resume Eliquis at 5 mg twice daily. We will recheck CTA tomorrow morning to see if patient needs to be on Eliquis as an outpatient. Social service consult for PCP, outpatient medication. Full code Eliquis will help with DVT prophylaxis [place] brat diet. Attestations Medical Necessity Statement*: Needs controlled hospitalization for sepsis most likely due to central infection. Time Spent in Patient Care: Greater than 35 minutes Coding Level of Care Code Acute Wedding Coordinator for Chg Fwd Diagnoses Sepsis A41.9 Sepsis acute organ dysfunction status: without acute organ dysfunction Sepsis type: sepsis due to unspecified organism Central line infection T80.219A Gastroparesis K31.84
[2019-05-22 17:10] LABS: Vancomycin Trough 15.4 ug/mL (10-15)
[2019-05-22] MEDS: tizanidine 4 mg Tablet PO ×2 (17:31→23:43)
[2019-05-22] MEDS: lidocaine 1% INJ 20 mL INTRADERMA (18:42)
--- NOTE | 2019-05-22 19:20 | PM.OP ---
Operative Report Date of procedure: 05/22/19 Pre-op Diagnosis: Infected Groshong catheter in the right internal jugular vein Post-op diagnosis: same Procedure Done: Removal of Groshong catheter from the right internal jugular vein Specimens removed/disposition: Catheter tip sent for culture Surgeon: Chase Alegria Anesthesia: Local Condition: stable Procedure: The patient's right chest around the catheter entry site was prepped and draped in a sterile manner after consent had been obtained. 1% lidocaine was infiltrated around the catheter. Using hemostat the catheter was dissected free from the surrounding subcutaneous tissue up to the cuff and removed intact without difficulty. The tip was sent for cultures. Pressure dressings were applied. Patient tolerated procedure well.
[2019-05-22 20:00] VITALS: BP 100/68; PULSE 78; RESP 20; TEMP 36.5; O2SAT 95
[2019-05-22] MEDS: dextrose 5%-sod chloride 0.9% 1,000 ML 100 ML IV (20:47)
[2019-05-23] VITALS (7 sets, daily range): BP systolic 98–138; BP diastolic 66–92; PULSE 65–81; RESP 18–22; TEMP 36.7–36.9; O2SAT 93–97
[2019-05-23] MEDS: diphenhydrAMINE 50 mg/mL SDV 1mL 12.5 MG IVP (04:40)
[2019-05-23] MEDS: HYDROcodone-acetaminophen 5-325 mg Tablet 1 TAB PO ×3 (04:49→16:39)
[2019-05-23 05:54] LABS: Basophils % 0.3 %; Eosinophils # 0.1 10^3/uL (0.0-0.8); Eosinophils % 2.1 %; Hematocrit 37.4 % (37.0-47.0); Lymphocytes # 1.3 10^3/uL (0.8-4.8); Mean Corpuscular HGB Conc 32.1 g/dL (30.0-36.0); Mean Corpuscular Hemoglobin 31.4 pg (28.0-34.0); Mean Corpuscular Volume 97.9 fL (81-99); Mean Platelet Volume 10.8 fL (7.4-10.4); Monocytes # 0.3 10^3/uL (0.2-0.9); Monocytes % 9.3 %; Neutrophils # 1.3 10^3/uL (1.8-7.7); Nucleated Red Blood Cells % 0 %; Platelet Count 99 10^3/cmm (130-400); Positive M 1; Red Blood Count 3.82 10^6/uL (4.1-5.3); Red Cell Distribution Width 12.5 % (12.1-15.1); White Blood Count 2.9 10^3/uL (4.0-10.0)
[2019-05-23 06:10] LABS: Alanine Aminotransferase 16 U/L (0-33); Albumin Level 3.1 g/dL (3.5-5.2); Alkaline Phosphatase 62 IU/L (35-105); Anion Gap 14.8 (5-19); Aspartate Amino Transferase 10 U/L (0-32); Blood Urea Nitrogen 4 mg/dL (6-20); Calcium 9.2 mg/dL (8.5-10.5); Carbon Dioxide 23 mmol/L (22-29); Chloride 110 mmol/L (98-107); Globulin 3.3 g/dL (1.3-4.6); Glomerular Filtration Rate 131.7 mL/min (90-130); Glucose 84 mg/dL (74-109); Potassium 3.8 mmol/L (3.5-5.1); Sodium 144 mmol/L (136-145); Total Bilirubin 0.3 mg/dL (0.15-1.2); Total Protein 6.4 g/dL (6.6-8.7)
[2019-05-23 06:55] LABS: Slide Review Slide Review Perform
[2019-05-23] MEDS: pantoprazole 40 mg SDV IVP (09:01)
[2019-05-23] MEDS: CLONazepam 0.5 mg Tablet PO ×2 (09:02→17:34)
[2019-05-23] MEDS: levothyroxine 150 mcg Tablet 75 MCG PO (09:02)
[2019-05-23] MEDS: apixaban 5 mg Tablet PO ×2 (09:02→17:34)
[2019-05-23] MEDS: tizanidine 4 mg Tablet PO ×2 (11:26→19:54)
--- NOTE | 2019-05-23 12:28 | P.PN_ITS ---
Subjective Subjective: Interval history: No acute events overnight. Has remained afebrile in last 24 hrs. States she is feeling a lot better now. Patient is tolerating bland diet well. Patient tolerates vancomycin well as well. Central line from right chest wall was removed yesterday. Labs reviewed. leukopenic on labs today and ANC normal. 2 sets of blood cultures positive for GPC's. Medications: Reviewed: Yes Vitals/I&O/Wt Last Vital Signs Temp 98.0 F 05/23/19 11:20 Pulse 79 05/23/19 11:20 Resp 18 05/23/19 11:20 BP 135/92 05/23/19 11:20 Pulse Ox 95 05/23/19 11:20 05/22/19 05/23/19 05/23/19 22:59 06:59 14:59 Intake Total 1590 / 2160 100 / 2260 890 / 890 Balance 1590 / 2160 100 / 2260 890 / 890 Weight last 48 hrs Weight 68.748 kg Weight 69.57 kg Physical Exam Narrative: EXAM NARRATIVE: General: No acute distress, AO x3, febrile HEENT: PERRLA, pupils bilaterally equal and reactive Chest: Normal vesicular breath sounds, no added sounds, equal good air entry bilaterally. Patient has a central line port present in the right side of her chest. Mild fluctuance present below the central line placement. CVS: S1-S2 regular, no murmurs, no tachycardia, no gallops, no rubs Abdomen: Soft, nontender, no organomegaly, bowel sounds present Neuro: No focal deficits, no facial deformity, AO x3, power 5/5 in all limbs Urinary Catheter Management^: Garza: Cath Placed During This Visit: no Data : 05/23/19 05:35 05/23/19 05:35 Micro: Microbiology 05/21/19 11:13 Blood Culture - Preliminary Blood Gram positive cocci 05/21/19 11:02 Group A Streptococcus Rapid Screen - Final Throat 05/22/19 14:47 MRSA Culture - Final Nose 05/22/19 13:10 Blood Culture - Preliminary Blood SPECIMEN COLLECTED 05/22/19 13:00 Blood Culture - Preliminary Blood SPECIMEN COLLECTED 05/21/19 11:17 Blood Culture - Preliminary Blood NEGATIVE TO DATE A&P Assessment and plan (1) Gram-positive cocci bacteremia: Status: Acute Code(s): R78.81 - Bacteremia (2) Sepsis: Status: Acute Qualifiers: Sepsis acute organ dysfunction status: without acute organ dysfunction Sepsis type: sepsis due to unspecified organism Qualified Code(s): A41.9 - Sepsis, unspecified organism Code(s): A41.9 - Sepsis, unspecified organism (3) Central line infection: Status: Acute Code(s): T80.219A - Unspecified infection due to central venous catheter, initial encount er (4) Gastroparesis: Status: Acute Code(s): K31.84 - Gastroparesis Additional A&P Information Sepsis most likely due to central infection: Patient is having high-grade fevers, source of infection most likely central line as resolving pus, tachycardia, tachypnea. Patient's blood pressure is stable so not in septic shock. As patient is tolerating diet well will decrease the fluid to 50 cc/h. Patient's blood cultures are only growing gram-positive cocci so we will discontinue imipenem for now and continue to monitor. We will continue vancomycin at renal dose. We will repeat blood cultures till patient have 2 sets of negative blood cultures. Port removed yesterday. Central line tip done for cultures. Have confirmed from micro lab as well. Continue with Tylenol for fever as needed. We will follow blood cultures and de-escalate antibiotics as needed. Patient is having pancytopenia today most likely due to severe sepsis. We will continue to monitor CBC daily. For now ANC is fair. No need for neutropenic precautions for now. Contact precautions for MRSA. Gastroparesis: Unsure of the cause. We will continue with Zofran and promethazine as required. IV fluid resuscitation as described above. Tolerating bland diet well. We will continue the same. Hypothyroidism: TSH failure. Continue on home dose of levothyroxine. Hypertension: Blood pressures are within normal limits. For now continue patient on lisinopril and metoprolol at home dose. History of DVT and PE: Patient states she has not taken her medication for over a month. Lower limb Dopplers negative for any DVT. Patient is not having any shortness of breath and her saturations are normal so we will hold off on any CTA for now. Resume Eliquis at 5 mg twice daily. We will recheck CTA tomorrow morning to see if patient needs to be on Eliquis as an outpatient. Social service consult for PCP, outpatient medication. Full code Eliquis will help with DVT prophylaxis [place] brat diet. Attestations Medical Necessity Statement*: Needs current hospitalization for management of gram-positive cocci bacteremia. Time Spent in Patient Care: Greater than 35 minutes Coding Level of Care Code Acute Polisher Brass for [facility] Fwd Diagnoses Gram-positive cocci bacteremia R78.81 Sepsis A41.9 Sepsis acute organ dysfunction status: without acute organ dysfunction Sepsis type: sepsis due to unspecified organism Central line infection T80.219A Gastroparesis K31.84
[2019-05-23] MEDS: ondansetron 2 mg/ML SDV 2 mL 4 MG IVP (14:38)
[2019-05-23] MEDS: promethazine 25 mg/mL SDV 1 mL 12.5 MG IM (20:02)
[2019-05-23] MEDS: dextrose 5%-sod chloride 0.9% 1,000 ML 75 ML IV (20:03)
[2019-05-24] MEDS: HYDROcodone-acetaminophen 5-325 mg Tablet 1 TAB PO ×4 (02:56→20:14)
[2019-05-24] MEDS: tizanidine 4 mg Tablet PO ×2 (02:56→22:39)
[2019-05-24] MEDS: promethazine 25 mg/mL SDV 1 mL 12.5 MG IM ×3 (02:56→22:39)
[2019-05-24 04:00] VITALS: BP 151/87; PULSE 96; RESP 19; TEMP 36.3
[2019-05-24 04:14] LABS: Basophils % 0.3 %; Eosinophils # 0.1 10^3/uL (0.0-0.8); Eosinophils % 1.8 %; Hematocrit 36.3 % (37.0-47.0); Hemoglobin 11.7 g/dL (11.5-15.3); Lymphocytes # 1.5 10^3/uL (0.8-4.8); Lymphocytes % 45.3 %; Mean Corpuscular HGB Conc 32.2 g/dL (30.0-36.0); Mean Corpuscular Hemoglobin 30.3 pg (28.0-34.0); Mean Platelet Volume 10.8 fL (7.4-10.4); Monocytes # 0.2 10^3/uL (0.2-0.9); Monocytes % 7.3 %; Neutrophils # 1.5 10^3/uL (1.8-7.7); Nucleated Red Blood Cells % 0 %; Platelet Count 114 10^3/cmm (130-400); Red Blood Count 3.86 10^6/uL (4.1-5.3); Red Cell Distribution Width 12.3 % (12.1-15.1); White Blood Count 3.3 10^3/uL (4.0-10.0)
[2019-05-24 04:39] LABS: Alanine Aminotransferase 14 U/L (0-33); Albumin Level 3.3 g/dL (3.5-5.2); Alkaline Phosphatase 65 IU/L (35-105); Anion Gap 14.5 (5-19); Aspartate Amino Transferase 8 U/L (0-32); Blood Urea Nitrogen 4 mg/dL (6-20); Calcium 9.2 mg/dL (8.5-10.5); Carbon Dioxide 24 mmol/L (22-29); Chloride 110 mmol/L (98-107); Globulin 3.3 g/dL (1.3-4.6); Glomerular Filtration Rate 131.7 mL/min (90-130); Glucose 87 mg/dL (74-109); Potassium 3.5 mmol/L (3.5-5.1); Sodium 145 mmol/L (136-145); Total Bilirubin 0.3 mg/dL (0.15-1.2); Total Protein 6.6 g/dL (6.6-8.7)
[2019-05-24 05:00] VITALS: BP 151/87; PULSE 96; RESP 19; TEMP 36.3
[2019-05-24] MEDS: diphenhydrAMINE 50 mg/mL SDV 1mL 12.5 MG IVP (05:31)
[2019-05-24 07:37] VITALS: BP 164/100; PULSE 85; RESP 18; TEMP 36.7; O2SAT 97
[2019-05-24] MEDS: levothyroxine 150 mcg Tablet 75 MCG PO (09:48)
[2019-05-24] MEDS: apixaban 5 mg Tablet PO ×2 (10:14→17:52)
[2019-05-24] MEDS: CLONazepam 0.5 mg Tablet PO ×2 (10:14→17:52)
[2019-05-24] MEDS: pantoprazole 40 mg SDV IVP (10:14)
[2019-05-24] MEDS: dextrose 5%-sod chloride 0.9% 1,000 ML 75 ML IV (10:35)
[2019-05-24 11:05] VITALS: BP 155/98; PULSE 73; RESP 18; TEMP 36.8; O2SAT 95
--- NOTE | 2019-05-24 12:16 | PC.SOCIAL ---
Pg 2 of IMM Pg 2 of Imm was explained to and signed by patient, copy was provided, and form was placed in chart. She verbalized understanding and had no questions.
[2019-05-24 16:00] VITALS: BP 137/83; PULSE 70; RESP 18; TEMP 36.7; O2SAT 96
[2019-05-24 16:03] LABS: Vancomycin Trough 21.2 ug/mL (10-15)
--- NOTE | 2019-05-24 16:39 | PC.NURSE ---
Pharmacy called with vancomycin trough results.
[2019-05-24] MEDS: vancomycin 1,000 MG in sodium chloride 0.9% 250 ML 166.7 MG IV (17:51)
--- NOTE | 2019-05-24 18:30 | P.PN_ITS ---
Subjective Subjective: Interval history: No acute events overnight. Remains afebrile. States she is feeling a lot better now. Patient continues to tolerate bland diet well. Patient tolerates vancomycin well as well. Central line from right chest wall was removed 04/21/20. Labs reviewed. leukopenic on labs today and ANC normal. 2 sets of blood cultures positive for GPC's. Medications: Reviewed: Yes Vitals/I&O/Wt Last Vital Signs Temp 98.0 F 05/24/19 16:00 Pulse 70 05/24/19 16:00 Resp 18 05/24/19 16:00 BP 137/83 05/24/19 16:00 Pulse Ox 96 05/24/19 16:00 05/24/19 05/24/19 05/24/19 06:59 14:59 22:59 Intake Total 1480 / 1480 Output Total 800 / 1200 Balance -800 / 780 1480 / 1480 Weight last 48 hrs Weight 64.637 kg Weight 68.748 kg Physical Exam Narrative: EXAM NARRATIVE: General: No acute distress, AO x3, febrile HEENT: PERRLA, pupils bilaterally equal and reactive Chest: Normal vesicular breath sounds, no added sounds, equal good air entry bilaterally. CVS: S1-S2 regular, no murmurs, no tachycardia, no gallops, no rubs Abdomen: Soft, nontender, no organomegaly, bowel sounds present Neuro: No focal deficits, no facial deformity, AO x3, power 5/5 in all limbs Urinary Catheter Management^: Garza: Cath Placed During This Visit: no Data : 05/24/19 03:04 05/24/19 03:04 Micro: Microbiology 05/22/19 18:24 Catheter Tip Culture - Preliminary Central Line Staphylococcus species 05/22/19 13:10 Blood Culture - Preliminary Blood NEGATIVE TO DATE 05/22/19 13:00 Blood Culture - Preliminary Blood NEGATIVE TO DATE A&P Assessment and plan (1) Gram-positive cocci bacteremia: Status: Acute Code(s): R78.81 - Bacteremia (2) Sepsis: Status: Acute Qualifiers: Sepsis acute organ dysfunction status: without acute organ dysfunction Sepsis type: sepsis due to unspecified organism Qualified Code(s): A41.9 - Sepsis, unspecified organism Code(s): A41.9 - Sepsis, unspecified organism (3) Central line infection: Status: Acute Code(s): T80.219A - Unspecified infection due to central venous catheter, initial encounter (4) Gastroparesis: Status: Acute Code(s): K31.84 - Gastroparesis Additional A&P Information Sepsis most likely due to central infection: Patient is having high-grade fevers, source of infection most likely central line as resolving pus, tachycardia, tachypnea. Patient's blood pressure is stable so not in septic shock. Patient euvolemic now and tolerating bland diet well. We will stop IV fluids today. Blood culture positive for gram-positive cocci and catheter tip positive for staphylococci. Have confirmed from microbiology is going to take around 2 more days for speciation. Most likely micrococcus is going very slow. 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 For now continue with vancomycin. We will plan for a PICC line as patient will require vancomycin for overall 14 days after removal of central line. Patient has remained stable and afebrile since stopping of imipenem. Continue with Tylenol for fever as needed. We will follow blood cultures and de-escalate antibiotics as needed. Patient is having pancytopenia today most likely due to severe sepsis. We will continue to monitor CBC daily. For now ANC is fair. No need for neutropenic precautions for now. Contact precautions for MRSA. Gastroparesis: Unsure of the cause. We will continue with Zofran and promethazine as required. Tolerating bland diet well. We will continue the same. C/w IV iron for JUSTICE. Day 3/5 Hypothyroidism: TSH Stable. Continue on home dose of levothyroxine. Hypertension: Blood pressures are within normal limits. For now continue patient on lisinopril and metoprolol at home dose. History of DVT and PE: Patient states she has not taken her medication for over a month. Lower limb Dopplers negative for any DVT. Patient is not having any shortness of breath and her saturations are normal so we will hold off on any CTA for now. Resume Eliquis at 5 mg twice daily. CTA awaiting. Social service consult for PCP, outpatient medication. Full code Eliquis will help with DVT prophylaxis [place] brat diet. Attestations Medical Necessity Statement*: Needs continued hospitalisation for treatment of GPC bacteremia Coding Level of Care Code Acute Front Office Coordinator for [facility] Fwd Diagnoses Gram-positive cocci bacteremia R78.81 Sepsis A41.9 Sepsis acute organ dysfunction status: without acute organ dysfunction Sepsis type: sepsis due to unspecified organism Central line infection T80.219A Gastroparesis K31.84
--- NOTE | 2019-05-24 18:38 | CTR_ITS ---
PROCEDURE INFORMATION: Exam: CT Angiography Chest With Contrast Exam date and time: 05/24/2019 10:00 PM Age: 49 years old Clinical indication: Shortness of breath; Chest pain; Type not specified; Additional info: Old pe, R/O pe TECHNIQUE: Imaging protocol: Computed tomographic angiography of the chest with intravenous contrast. 3D rendering: MIP and/or 3D reconstructed images were created by the technologist. Total DLP: 588.79 mGy-cm Radiation optimization: All CT scans at this facility use at least one of these dose optimization techniques: automated exposure control; mA and/or kV adjustment per patient size (includes targeted exams where dose is matched to clinical indication); or iterative reconstruction. Contrast material: OMNI 350; Contrast volume: 68.4 ml; Contrast route: 20G; COMPARISON: CTA Chest-Pulmonary Emb [id number] 08/28/2018 4:52 PM FINDINGS: Pulmonary arteries: Pulmonary arteries are adequately visualized to the subsegmental level. There is a subtle nonocclusive thrombus in the distal left lower lobe pulmonary artery, stable since the prior exam consistent with chronic pulmonary embolism. There is no acute pulmonary embolism. Aorta: The aorta is unremarkable. There is no aneurysm. Other veins: There are extensive large contrast filled collateral veins in the chest wall. The left subclavian vein is occluded. Lungs: Lungs are clear. Pleural space: Trace right pleural effusion. Heart: The heart is unremarkable. There is mild coronary artery calcification. There is no pericardial effusion. Spleen: The spleen is mildly enlarged. Lymph nodes: There is no mediastinal or hilar lymphadenopathy. Bones/joints: Bones are unremarkable. Soft tissues: There is periareolar skin thickening in the left breast. There is a small volume of fluid within the subcutaneous fat of the upper abdomen. CT/CT angio chest PE protcl [id number] IMPRESSION: 1. No acute pulmonary embolism. Minimal chronic pulmonary embolism in the left lower lobe is stable since 08/28/2018. 2. 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 3. Fluid in the subcutaneous fat of the upper abdominal wall. Possible inflammatory process or postoperative changes. Radiation Dose CTDIVOL = (mGy): DLP = 588.79 (mGy-cm)
[2019-05-24 20:00] VITALS: BP 150/94; PULSE 63; RESP 18; TEMP 36.8; O2SAT 96
[2019-05-25] VITALS: BP 136/90; PULSE 56; RESP 18; TEMP 36.8; O2SAT 96
[2019-05-25] MEDS: iohexol 350 mg/mL 100 mL Btl IV (00:27)
[2019-05-25 03:59] VITALS: BP 130/84; PULSE 67; RESP 18; TEMP 36.9; O2SAT 95
[2019-05-25] MEDS: promethazine 25 mg/mL SDV 1 mL 12.5 MG IM ×2 (05:14→12:01)
[2019-05-25] MEDS: tizanidine 4 mg Tablet PO ×4 (05:15→22:11)
[2019-05-25] MEDS: HYDROcodone-acetaminophen 5-325 mg Tablet 1 TAB PO ×3 (05:15→16:36)
[2019-05-25] MEDS: vancomycin 1,000 MG in sodium chloride 0.9% 250 ML 166.6 MG IV ×2 (06:21→17:36)
[2019-05-25 06:22] LABS: Basophils % 0.3 %; Eosinophils # 0.1 10^3/uL (0.0-0.8); Eosinophils % 1.4 %; Hemoglobin 11.7 g/dL (11.5-15.3); Lymphocytes # 1.4 10^3/uL (0.8-4.8); Lymphocytes % 39.3 %; Mean Corpuscular HGB Conc 32.5 g/dL (30.0-36.0); Mean Corpuscular Hemoglobin 29.8 pg (28.0-34.0); Mean Corpuscular Volume 91.8 fL (81-99); Mean Platelet Volume 10.6 fL (7.4-10.4); Monocytes # 0.2 10^3/uL (0.2-0.9); Monocytes % 6.4 %; Neutrophils # 1.9 10^3/uL (1.8-7.7); Nucleated Red Blood Cells % 0 %; Platelet Count 129 10^3/cmm (130-400); Red Blood Count 3.92 10^6/uL (4.1-5.3); Red Cell Distribution Width 12.2 % (12.1-15.1); White Blood Count 3.6 10^3/uL (4.0-10.0)
[2019-05-25] MEDS: diphenhydrAMINE 50 mg/mL SDV 1mL 12.5 MG IVP (06:22)
[2019-05-25 06:48] LABS: Alanine Aminotransferase 12 U/L (0-33); Albumin Level 3.5 g/dL (3.5-5.2); Alkaline Phosphatase 76 IU/L (35-105); Anion Gap 14.4 (5-19); Aspartate Amino Transferase 10 U/L (0-32); Blood Urea Nitrogen 4 mg/dL (6-20); Calcium 9.2 mg/dL (8.5-10.5); Carbon Dioxide 26 mmol/L (22-29); Chloride 105 mmol/L (98-107); Globulin 3.2 g/dL (1.3-4.6); Glomerular Filtration Rate 131.7 mL/min (90-130); Glucose 95 mg/dL (74-109); Potassium 3.4 mmol/L (3.5-5.1); Sodium 142 mmol/L (136-145); Total Bilirubin 0.3 mg/dL (0.15-1.2); Total Protein 6.7 g/dL (6.6-8.7)
[2019-05-25 08:00] VITALS: BP 159/107; PULSE 59; RESP 18; TEMP 36.4; O2SAT 96
[2019-05-25] MEDS: pantoprazole 40 mg SDV IVP (08:42)
[2019-05-25] MEDS: apixaban 5 mg Tablet PO ×2 (08:42→17:37)
[2019-05-25] MEDS: CLONazepam 0.5 mg Tablet PO (08:42)
[2019-05-25] MEDS: levothyroxine 150 mcg Tablet 75 MCG PO (08:42)
[2019-05-25 12:00] VITALS: BP 140/104; PULSE 64; RESP 18; TEMP 36.9; O2SAT 97
[2019-05-25 15:55] VITALS: BP 184/114; PULSE 74; RESP 18; TEMP 36.8; O2SAT 97
--- NOTE | 2019-05-25 17:05 | PM.PN ---
Subjective Subjective: Interval history: This morning patient is is a bit anxious about still being in the hospital, denies fevers, chills, nausea, vomiting, lightheadedness, dizziness, she is worried about affordability of her medications Vitals/I&O/Wt Last Vital Signs Temp 98.3 F 05/25/19 15:55 Pulse 74 05/25/19 15:55 Resp 18 05/25/19 15:55 BP 184/114 05/25/19 15:55 Pulse Ox 97 05/25/19 15:55 05/25/19 05/25/19 05/25/19 06:59 14:59 22:59 Intake Total 250 / 1960 358 / 358 Output Total 300 / 2150 1300 / 1300 Balance -50 / -190 -942 / -942 Weight last 48 hrs Weight 64.58 kg Weight 64.637 kg Physical Exam Const: COMMON NORMALS: no apparent distress and oriented x3 HENMT: COMMON NORMALS: normocephalic HEAD & SCALP: normocephalic Neck/C-Spine: COMMON NORMALS: no JVD Resp: COMMON NORMALS: normal respiratory effort, no retractions, no use of accessory muscles and clear to auscultation bilaterally AUSCULTATION: clear to auscultation bilaterally Cardio: COMMON NORMALS: no JVD, regular rate, regular rhythm, S1 normal heart sound and S2 normal heart sound RATE: regular rate RHYTHM: regular rhythm HEART SOUNDS: S1 normal and S2 normal GI: COMMON NORMALS: normal to inspection, nondistended, normoactive bowel sounds, soft to palpation, non-tender, no hepatosplenomegaly, no masses and no bruits PALPATION: Yes soft and Yes no hepatosplenomegaly Neuro: COMMON NORMALS: oriented x3 Psych: COMMON NORMALS: mental status grossly normal Urinary Catheter Management^: Garza: Cath Placed During This Visit: no Data : 05/25/19 05:44 05/25/19 05:44 Micro: Microbiology 05/22/19 18:24 Catheter Tip Culture - Preliminary Central Line Staphylococcus species 05/21/19 11:13 Blood Culture - Preliminary Blood Micrococcus and related specie A&P Assessment and plan (1) Gram-positive cocci bacteremia: -Tip culture show Staphylococcus species, identification pending -1 blood culture showing micrococcus and related species, identification pending -Continue vancomycin -PICC line hopefully to be placed on Monday, followed up by 14 days of IV vancomycin or equivalent based on susceptibilities Status: Acute Code(s): R78.81 - Bacteremia (2) Sepsis: Status: Acute Qualifiers: Sepsis acute organ dysfunction status: without acute organ dysfunction Sepsis type: sepsis due to unspecified organism Qualified Code(s): A41.9 - Sepsis, unspecified organism Code(s): A41.9 - Sepsis, unspecified organism (3) Central line infection: Status: Acute Code(s): T80.219A - Unspecified infection due to central venous catheter, initial encounter (4) Gastroparesis: Status: Acute Code(s): K31.84 - Gastroparesis Additional A&P Information Contact precautions for MRSA. Gastroparesis: Unsure of the cause. We will continue with Zofran and promethazine as required. Patient wants to try a general diet, and pick and choose what she can eat C/w IV iron for JUSTICE. Day 3 Hypothyroidism: TSH Stable. Continue on home dose of levothyroxine. Hypertension: Blood pressures are within normal limits. For now continue patient on lisinopril and metoprolol at home dose. History of DVT and PE: Patient states she has not taken her medication for over a month. Lower limb Dopplers negative for any DVT. CTA shows minimal chronic pulmonary embolism in the left lower lobe stable since 08/28/2018 Resume Eliquis at 5 mg twice daily. Patient states that she cannot afford Eliquis, will reach out to case management to see if this is a viable option under 340 be, if not we will switch over to Lovenox and Coumadin Social service consult for PCP, outpatient medication. Full code Eliquis will help with DVT prophylaxis General diet Attestations Medical Necessity Statement*: Patient requires continued hospitalization due to gram-positive bacteremia Coding Level of Care Code Acute Retail Manager In Training for g Fwd Diagnoses Gram-positive cocci bacteremia R78.81 Sepsis A41.9 Sepsis acute organ dysfunction status: without acute organ dysfunction Sepsis type: sepsis due to unspecified organism Central line infection T80.219A Gastroparesis K31.84
[2019-05-25 19:47] VITALS: BP 130/86; PULSE 59; RESP 18; TEMP 36.8; O2SAT 95
[2019-05-25] MEDS: HYDROcodone-acetaminophen 10-325 mg Tablet 1 TAB PO (20:51)
[2019-05-26] VITALS: BP 154/94; PULSE 65; RESP 18; TEMP 36.9; O2SAT 92
[2019-05-26] MEDS: HYDROcodone-acetaminophen 10-325 mg Tablet 1 TAB PO ×3 (03:49→20:26)
[2019-05-26 04:00] VITALS: BP 135/83; PULSE 73; RESP 18; TEMP 36.8; O2SAT 94
[2019-05-26 04:59] LABS: Basophils % 0.4 %; Eosinophils # 0.1 10^3/uL (0.0-0.8); Eosinophils % 1.3 %; Hematocrit 38.2 % (37.0-47.0); Hemoglobin 12.6 g/dL (11.5-15.3); Lymphocytes # 1.8 10^3/uL (0.8-4.8); Lymphocytes % 38.9 %; Mean Corpuscular Hemoglobin 30.9 pg (28.0-34.0); Mean Corpuscular Volume 93.6 fL (81-99); Mean Platelet Volume 10.2 fL (7.4-10.4); Monocytes # 0.2 10^3/uL (0.2-0.9); Neutrophils # 2.5 10^3/uL (1.8-7.7); Nucleated Red Blood Cells % 0 %; Platelet Count 144 10^3/cmm (130-400); Red Blood Count 4.08 10^6/uL (4.1-5.3); Red Cell Distribution Width 11.9 % (12.1-15.1); White Blood Count 4.6 10^3/uL (4.0-10.0)
[2019-05-26 05:30] LABS: Alanine Aminotransferase 13 U/L (0-33); Albumin Level 3.5 g/dL (3.5-5.2); Alkaline Phosphatase 79 IU/L (35-105); Anion Gap 15.1 (5-19); Aspartate Amino Transferase 8 U/L (0-32); Blood Urea Nitrogen 5 mg/dL (6-20); Calcium 9.5 mg/dL (8.5-10.5); Carbon Dioxide 26 mmol/L (22-29); Chloride 104 mmol/L (98-107); Globulin 3.7 g/dL (1.3-4.6); Glomerular Filtration Rate 131.7 mL/min (90-130); Glucose 91 mg/dL (74-109); Potassium 3.1 mmol/L (3.5-5.1); Sodium 142 mmol/L (136-145); Total Bilirubin 0.4 mg/dL (0.15-1.2); Total Protein 7.2 g/dL (6.6-8.7)
[2019-05-26 05:31] LABS: Vancomycin Trough 16.7 ug/mL (10-15)
[2019-05-26] MEDS: ondansetron 2 mg/ML SDV 2 mL 4 MG IVP ×2 (05:33→15:30)
[2019-05-26] MEDS: tizanidine 4 mg Tablet PO ×4 (05:34→22:41)
[2019-05-26 05:59] LABS: Slide Review Slide Review Perform
[2019-05-26] MEDS: vancomycin 1,000 MG in sodium chloride 0.9% 250 ML 166.6 MG IV (06:38)
[2019-05-26 08:00] VITALS: BP 164/99; PULSE 74; RESP 20; TEMP 37.2; O2SAT 96
[2019-05-26] MEDS: apixaban 5 mg Tablet PO (08:47)
[2019-05-26] MEDS: pantoprazole 40 mg SDV IVP (08:48)
[2019-05-26] MEDS: levothyroxine 150 mcg Tablet 75 MCG PO (08:48)
[2019-05-26] MEDS: metoprolol succinate ER (24 HR) 50 mg Tablet PO (08:48)
[2019-05-26] MEDS: promethazine 25 mg/mL SDV 1 mL 12.5 MG IM (08:57)
--- NOTE | 2019-05-26 10:39 | DCPLANNER ---
Pg 2 of IM updated and reviewed with pt. No questions, copy provided.
[2019-05-26 11:19] VITALS: BP 175/99; PULSE 54; RESP 20; TEMP 36.8; O2SAT 99
--- NOTE | 2019-05-26 14:01 | PC.CHAP ---
Pastoral Care Encounter/Spiritual Assessment Type of Contact [] Declined brim rounder visit [] Patient/Family/Request visit [] Outpatient visit [] Follow-up visit [] Physician referral [] Code/Alert [x] Routine visit [] Staff referral [] Actively dying [x] Patient sleeping [] Family support [] [] Out of room [] Palliative care [] [] Receiving care in room [] Pre-surgical visit [] Trauma [] Long length of stay [] ICU visit [] Other: Relational/Emotional Strength [] Patient feels connected with others/family/visitors/staff [] Distress [] Loneliness/isolation [] Abandonment Spirituality of Patient [] Person of Rola [] Attends Evangelical of their Rola [] Believes in Prayer [] Reads Bible or Quaker materials [] There are Spiritual issues to be addressed Insurance Checker Interventions [] Prayer [] Active listening [] Non-anxious presence [] Spiritual/emotional support [] Crisis/trauma care [] Spiritual counseling [] Bereavement support [] Provided bereavement packet [] Provided Bible/devotional materials [] Provided toy/stuffed animal, coloring book to patient or family member [] Provided Communion [] Anointing/[place] [] Salvation [] Completed spiritual assessment [] Other: Impact on Illness or Injury [] Angry [] Fearful [] Anxious [] Often cries [] Exhaustion [] Unable to work [] Unable to attend pentecostal [] Unable to walk/stand [] Unable to read [] Unable to drive [] Unable to eat/drink [] Unable to sleep [] Unable to be with family [] Patient intubated [] Other: Summary pt. was sleeping, will need revisit. Time spent with patient 5 min.
[2019-05-26 15:18] VITALS: BP 161/98; PULSE 57; RESP 20; TEMP 36.9; O2SAT 95
--- NOTE | 2019-05-26 15:48 | PC.NURSE ---
dressing change on right upper chest cleanse with chlora prep, change old dressing with new covaderm dressing.
[2019-05-26 18:06] LABS: INR 1.08 (0.8-1.2)
--- NOTE | 2019-05-26 18:54 | PM.PN ---
Subjective Subjective: Interval history: Patient has no complaints this morning, states that she is doing well, Vitals/I&O/Wt Last Vital Signs Temp 98.4 F 05/26/19 15:18 Pulse 57 L 05/26/19 15:18 Resp 20 H 05/26/19 15:18 BP 161/98 05/26/19 15:18 Pulse Ox 95 05/26/19 15:18 05/26/19 05/26/19 05/26/19 06:59 14:59 22:59 Intake Total 260 / 1288 1340 / 1340 480 / 1820 Output Total 700 / 2000 Balance -440 / -712 1340 / 1340 480 / 1820 Weight last 48 hrs Weight 65.998 kg Weight 64.58 kg Physical Exam Const: COMMON NORMALS: no apparent distress and oriented x3 Neck/C-Spine: COMMON NORMALS: no JVD Resp: COMMON NORMALS: normal respiratory effort, no retractions, no use of accessory muscles and clear to auscultation bilaterally AUSCULTATION: clear to auscultation bilaterally Cardio: COMMON NORMALS: no JVD, regular rate, regular rhythm, S1 normal heart sound and S2 normal heart sound RATE: regular rate RHYTHM: regular rhythm HEART SOUNDS: S1 normal and S2 normal GI: COMMON NORMALS: normal to inspection, nondistended, normoactive bowel sounds, soft to palpation, non-tender, no hepatosplenomegaly, no masses and no bruits PALPATION: Yes soft and Yes no hepatosplenomegaly Extremity: COMMON NORMALS: normal capillary refill, no clubbing, cyanosis or edema, no calf tenderness and no pedal edema Neuro: COMMON NORMALS: oriented x3 Psych: COMMON NORMALS: mental status grossly normal Urinary Catheter Management^: Garza: Cath Placed During This Visit: no Data : 05/26/19 04:30 05/26/19 04:30 Micro: Microbiology 05/22/19 18:24 Catheter Tip Culture - Preliminary Central Line Staphylococcus epidermidis 05/21/19 11:17 Blood Culture - Final Blood NO GROWTH AFTER 5 DAYS A&P Assessment and plan (1) Staphylococcus epidermidis bacteremia: -Central line infection, removed -1 blood culture does show micrococcus and related species, identification pending -Patient will require a 14-day course of either vancomycin or daptomycin through PICC line -Discharge tomorrow Status: Acute Code(s): R78.81 - Bacteremia (2) Gastroparesis: On a general diet, picks and chooses which she can tolerate Status: Acute Code(s): K31.84 - Gastroparesis (3) Central line infection: Status: Acute Code(s): T80.219A - Unspecified infection due to central venous catheter, initial encounter (4) DVT (deep venous thrombosis): -Cannot afford Eliquis -On therapeutic Lovenox and Coumadin as dosed by the pharmacy Status: Acute Code(s): I82.409 - Acute embolism and thrombosis of unspecified deep veins of unspecified lower extremity (5) Pulmonary embolism: Status: Acute Code(s): I26.99 - Other pulmonary embolism without acute cor pulmonale Attestations Medical Necessity Statement*: Requires hospitalization due to staphylococcal epidermidis bacteremia, Coding Level of Care Code Acute Cinetechnician for [facility] Fwd Diagnoses Staphylococcus epidermidis bacteremia R78.81 Gastroparesis K31.84 Central line infection T80.219A DVT (deep venous thrombosis) I82.409 Pulmonary embolism I26.99
[2019-05-26] MEDS: enoxaparin 80 mg/0.8 mL Syringe 70 MG SUBCUT (19:03)
[2019-05-26] MEDS: vancomycin 1,000 MG in sodium chloride 0.9% 250 ML 166 MG IV (19:04)
[2019-05-26 20:00] VITALS: BP 137/84; PULSE 53; RESP 17; TEMP 36.7; O2SAT 98
[2019-05-26] MEDS: warfarin 5 mg Tablet PO (20:26)
[2019-05-27] VITALS (7 sets, daily range): BP systolic 122–163; BP diastolic 61–99; PULSE 52–61; RESP 17–20; TEMP 36.7–37.1; O2SAT 94–97
[2019-05-27] MEDS: HYDROcodone-acetaminophen 10-325 mg Tablet 1 TAB PO ×5 (04:13→23:28)
[2019-05-27] MEDS: enoxaparin 80 mg/0.8 mL Syringe 70 MG SUBCUT ×2 (05:42→18:07)
[2019-05-27] MEDS: vancomycin 1,000 MG in sodium chloride 0.9% 250 ML 166 MG IV ×2 (05:42→18:07)
[2019-05-27 06:07] LABS: Basophils % 0.3 %; Eosinophils # 0.1 10^3/uL (0.0-0.8); Eosinophils % 1.7 %; Hematocrit 38.9 % (37.0-47.0); Hemoglobin 13.1 g/dL (11.5-15.3); Lymphocytes % 34.7 %; Mean Corpuscular HGB Conc 33.7 g/dL (30.0-36.0); Mean Corpuscular Hemoglobin 30.4 pg (28.0-34.0); Mean Corpuscular Volume 90.3 fL (81-99); Mean Platelet Volume 10.2 fL (7.4-10.4); Monocytes # 0.3 10^3/uL (0.2-0.9); Monocytes % 5.7 %; Neutrophils # 3.3 10^3/uL (1.8-7.7); Neutrophils % 56.4 %; Nucleated Red Blood Cells % 0 %; Platelet Count 159 10^3/cmm (130-400); Positive M 1; Red Blood Count 4.31 10^6/uL (4.1-5.3); White Blood Count 5.8 10^3/uL (4.0-10.0)
[2019-05-27 06:12] LABS: INR 1.08 (0.8-1.2)
[2019-05-27] MEDS: tizanidine 4 mg Tablet PO ×4 (06:22→23:29)
[2019-05-27 06:26] LABS: Alanine Aminotransferase 16 U/L (0-33); Albumin Level 3.9 g/dL (3.5-5.2); Alkaline Phosphatase 88 IU/L (35-105); Anion Gap 14.1 (5-19); Aspartate Amino Transferase 13 U/L (0-32); Blood Urea Nitrogen 7 mg/dL (6-20); Calcium 9.8 mg/dL (8.5-10.5); Carbon Dioxide 25 mmol/L (22-29); Chloride 106 mmol/L (98-107); Globulin 3.5 g/dL (1.3-4.6); Glomerular Filtration Rate 106.7 mL/min (90-130); Glucose 87 mg/dL (74-109); Potassium 4.1 mmol/L (3.5-5.1); Sodium 141 mmol/L (136-145); Total Bilirubin 0.3 mg/dL (0.15-1.2); Total Protein 7.4 g/dL (6.6-8.7)
[2019-05-27 06:31] LABS: Slide Review Slide Review Perform
[2019-05-27] MEDS: ondansetron 2 mg/ML SDV 2 mL 4 MG IVP ×3 (06:37→23:29)
[2019-05-27] MEDS: metoprolol succinate ER (24 HR) 50 mg Tablet PO (08:36)
[2019-05-27] MEDS: levothyroxine 150 mcg Tablet 75 MCG PO (08:36)
--- NOTE | 2019-05-27 08:50 | PC.NURSE ---
0850- [facility] CONSENT NOT COMPLETED AT THIS TIME
--- NOTE | 2019-05-27 09:06 | PM.PN ---
Subjective Subjective: Interval history: Chart reviewed, labs noted, ongoing bridging with Coumadin and Lovenox. Had 1000 mL urine output overnight. Patient seen and examined, very pleasant, resting in bed, no complaints. Had PICC line placed earlier today. Case management arranging for outpatient antibiotics. Medications: Reviewed: Yes Medication Review Details: Current Medications Generic Name Dose Route Start Last Admin Trade Name Freq PRN Reason Stop Dose Admin Hydrocodone Bitart /Acetaminophen 1 tab 05/25/19 17:10 05/27/19 04:13 [place] 10-325 Mg PO 1 tab Q4H PRN Administration Pain Diphenhydramine HC l 12.5 mg 05/21/19 15:33 05/25/19 06:22 Benadryl IVP 12.5 mg Q6H PRN Administration ITCHING Enoxaparin Sodium 70 mg 05/26/19 18:00 05/27/19 05:42 Lovenox SUBCUT 70 mg Q12H KESHA Administration Vancomycin HCl 1,0 00 mg/ 250 mls @ 166.667 mls/hr 05/24/19 18:00 05/27/19 05:42 Sodium Chloride IV 166 mls/hr Q12H KESHA Administration Protocol Levothyroxine Sodi um 75 mcg 05/22/19 09:00 05/27/19 08:36 Synthroid PO 75 mcg DAILY KESHA Administration Metoprolol Succina te 50 mg 05/26/19 09:00 05/27/19 08:36 Toprol Xl PO 50 mg DAILY KESHA Administration Ondansetron HCl 4 mg 05/21/19 14:26 05/27/19 06:37 Zofran IVP 4 mg Q8H PRN Administration vomiting, or N/V if npo Pantoprazole Sodiu m 40 mg 05/22/19 09:00 05/26/19 08:48 Protonix IVP 40 mg DAILY KESHA Administration Promethazine HCl 12.5 mg 05/21/19 14:26 05/26/19 08:57 Phenergan IM 12.5 mg Q6H PRN Administration NAUSEA Tizanidine HCl 4 mg 05/21/19 21:00 05/27/19 06:22 Zanaflex PO 4 mg QID PRN Administration MUSCLE SPASMS Warfarin Sodium 5 mg 05/26/19 20:00 05/26/19 20:26 Coumadin PO 5 mg DAILY@1400 KESHA Administration Vitals/I&O/Wt Last Vital Signs Temp 98.1 F 05/27/19 07:04 Pulse 52 L 05/27/19 07:04 Resp 20 H 05/27/19 07:04 BP 155/98 05/27/19 07:04 Pulse Ox 95 05/27/19 07:04 05/26/19 05/27/19 05/27/19 22:59 06:59 14:59 Intake Total 970 / 2310 480 / 480 Output Total 1000 / 1000 Balance 970 / 2310 -1000 / 1310 480 / 480 Weight last 48 hrs Weight 65.771 kg Weight 65.998 kg Physical Exam Const: COMMON NORMALS: no apparent distress and oriented x3 GENERAL APPEARANCE: cooperative and comfortable ORIENTATION/CONSCIOUSNESS: Yes awake HENMT: COMMON NORMALS: normocephalic, head/scalp atraumatic, hearing grossly normal bilaterally and moist oral mucous membranes HEAD & SCALP: normocephalic and atraumatic Eye: COMMON NORMALS: PERRL, EOMs intact bilaterally and conjunctivae normal CONJUNCTIVA: Yes conjunctivae normal PUPIL: Yes PERRL Neck/C-Spine: COMMON NORMALS: full ROM GENERAL: Yes normal visual inspection and Yes trachea midline Resp: COMMON NORMALS: normal respiratory effort, no retractions, no use of accessory muscles and clear to auscultation bilaterally EFFORT & INSPECTION: Yes able to speak in complete sentences, Yes symmetric chest movement and No tachypneic AUSCULTATION: clear to auscultation bilaterally Cardio: COMMON NORMALS: regular rate, regular rhythm, S1 normal heart sound, S2 normal heart sound and no murmurs RATE: regular rate RHYTHM: regular rhythm HEART SOUNDS: S1 normal and S2 normal GI: COMMON NORMALS: normal to inspection, nondistended, normoactive bowel sounds, soft to palpation and non-tender PALPATION: Yes soft Extremity: COMMON NORMALS: normal to inspection, full ROM and no clubbing, cyanosis or edema; negative for no pedal edema OTHER: -PICC line on RUE Neuro: COMMON NORMALS: oriented x3, moves all extremities, no focal motor deficits, no sensory deficits noted and gait normal Psych: COMMON NORMALS: mental status grossly normal, thought process normal, cooperative, affect normal and speech normal SPEECH: Yes normal speech THOUGHT PROCESS: normal thought process Skin: COMMON NORMALS: no rashes or lesions noted, no jaundice, no petechiae and no mottling GENERAL SKIN EXAM: no rashes or lesions noted Urinary Catheter Management^: Garza: Cath Placed During This Visit: no Data : 05/27/19 05:33 05/27/19 05:33 Micro: Microbiology 05/22/19 18:24 Catheter Tip Culture - Preliminary Central Line Staphylococcus epidermidis 05/21/19 11:17 Blood Culture - Final Blood NO GROWTH AFTER 5 DAYS A&P Assessment and plan (1) Staphylococcus epidermidis bacteremia: -noted to have Staph epidermidis bacteremia from culture of central line tip; sensitivity noted -on Vancomycin; will need to complete 14 day course -pending PICC line placement for continued IV antibiotics -afebrile, no leukocytosis -noted other blood cx growing micrococcus in 1/4 bottles and GPRs in 1/4 bottles Status: Acute Code(s): R78.81 - Bacteremia (2) Pulmonary embolism: -per CTA PE, no evidence of acute PE but minimal chronic PE that has been stable since 08/2018 -had previously been on AC with Eliquis which she can no longer afford so bridging with Coumadin and Lovenox, INR-1.08 -will require INR checks at least twice/week until therapeutic -negative DVT on venous duplex -Echo: EF=55%, no RWMA, trace AR Status: Acute Qualifiers: Acute cor pulmonale presence: without acute cor pulmonale Chronicity: chronic Pulmonary embolism type: unspecified Qualified Code(s): I27.82 - Chronic pulmonary embolism Code(s): I26.99 - Other pulmonary embolism without acute cor pulmonale (3) Gastroparesis: -on liberal diet Status: Acute Code(s): K31.84 - Gastroparesis Additional A&P Information -Intermittent bradycardia; is on BB, decrease dose -HTN -Hypothyroidism; continue Levothyroxine -GERD: on PPI -on AC so no need for DVT ppx -Dispo: home; will need HH services due to INR draws, IV antibiotics -Code status: FULL code Attestations Medical Necessity Statement*: Patient requires hospitalization for continued IV antibiotics. Time Spent in Patient Care: Greater than 35 minutes (>than 50% of time spent in counselling and/or direct pt care on unit). Coding Level of Care Code Acute Health Educator for [facility] Fwd Exam Problem Focused Diagnoses Staphylococcus epidermidis bacteremia R78.81 Pulmonary embolism I27.82 Acute cor pulmonale presence: without acute cor pulmonale Chronicity: chronic Pulmonary embolism type: unspecified Gastroparesis K31.84
[2019-05-27] MEDS: pantoprazole 40 mg SDV IVP (09:10)
--- NOTE | 2019-05-27 12:35 | PC.CHAP ---
Pastoral Care Encounter/Spiritual Assessment Type of Contact [] Declined hotbed operator visit [] Patient/Family/Request visit [] Outpatient visit [] Follow-up visit [] Physician referral [] Code/Alert [] Routine visit [] Staff referral [] Actively dying [] Patient sleeping [] Family support [] [] Out of room [] Palliative care [] [] Receiving care in room [] Pre-surgical visit [] Trauma [] Long length of stay [] ICU visit [x] Other: Patient in isolation so no contact made Relational/Emotional Strength [] Patient feels connected with others/family/visitors/staff [] Distress [] Loneliness/isolation [] Abandonment Spirituality of Patient [] Person of Rola [] Attends Pentecostal of their Rola [] Believes in Prayer [] Reads Bible or Samaritan materials [] There are Spiritual issues to be addressed Gambling Broker Interventions [] Prayer [] Active listening [] Non-anxious presence [] Spiritual/emotional support [] Crisis/trauma care [] Spiritual counseling [] Bereavement support [] Provided bereavement packet [] Provided Bible/devotional materials [] Provided toy/stuffed animal, coloring book to patient or family member [] Provided Communion [] Anointing/[place] [] Salvation [] Completed spiritual assessment [] Other: Impact on Illness or Injury [] Angry [] Fearful [] Anxious [] Often cries [] Exhaustion [] Unable to work [] Unable to attend muslim [] Unable to walk/stand [] Unable to read [] Unable to drive [] Unable to eat/drink [] Unable to sleep [] Unable to be with family [] Patient intubated [] Other: Summary Patient in isolation so no contact made Time spent with patient 2 minutes
--- NOTE | 2019-05-27 12:36 | PC.CHAP ---
Pastoral Care Encounter/Spiritual Assessment Type of Contact [] Declined law office assistant visit [] Patient/Family/Request visit [] Outpatient visit [] Follow-up visit [] Physician referral [] Code/Alert [] Routine visit [] Staff referral [] Actively dying [] Patient sleeping [] Family support [] [] Out of room [] Palliative care [] [] Receiving care in room [] Pre-surgical visit [] Trauma [] Long length of stay [] ICU visit [] Other: Relational/Emotional Strength [] Patient feels connected with others/family/visitors/staff [] Distress [] Loneliness/isolation [] Abandonment Spirituality of Patient [] Person of Rola [] Attends Anabaptist of their Rola [] Believes in Prayer [] Reads Bible or Nondenominational materials [] There are Spiritual issues to be addressed Stone Fabricator Interventions [] Prayer [] Active listening [] Non-anxious presence [] Spiritual/emotional support [] Crisis/trauma care [] Spiritual counseling [] Bereavement support [] Provided bereavement packet [] Provided Bible/devotional materials [] Provided toy/stuffed animal, coloring book to patient or family member [] Provided Communion [] Anointing/[place] [] Salvation [] Completed spiritual assessment [] Other: Impact on Illness or Injury [] Angry [] Fearful [] Anxious [] Often cries [] Exhaustion [] Unable to work [] Unable to attend samaritan [] Unable to walk/stand [] Unable to read [] Unable to drive [] Unable to eat/drink [] Unable to sleep [] Unable to be with family [] Patient intubated [] Other: Summary Time spent with patient
[2019-05-27] MEDS: warfarin 5 mg Tablet PO (13:00)
--- NOTE | 2019-05-27 13:21 | XR_ITS ---
WS: [id number] CHEST XRAY TECHNIQUE: Portable chest. CLINICAL INFORMATION: PICC LINE PLACEMENT COMPARISON: None. FINDINGS: Right PICC line positioned at the mid axillary line. No pneumothorax. Cholecystectomy clips. Heart: Normal cardiac silhouette. Lungs: Lungs are clear. No consolidation or pleural effusion. Bones: Normal visualized bony structures. XR/XR chest 1V portable [id number] IMPRESSION: Right PICC line position at the midaxillary line. No pneumothorax.
[2019-05-28 04:00] VITALS: BP 144/102; PULSE 69; RESP 20; TEMP 37.1; O2SAT 96
[2019-05-28 05:38] LABS: Basophils % 0.3 %; Eosinophils # 0.1 10^3/uL (0.0-0.8); Eosinophils % 2.5 %; Hematocrit 46.8 % (37.0-47.0); Lymphocytes # 1.5 10^3/uL (0.8-4.8); Lymphocytes % 42.3 %; Mean Corpuscular HGB Conc 34.2 g/dL (30.0-36.0); Mean Corpuscular Hemoglobin 31.1 pg (28.0-34.0); Mean Corpuscular Volume 91.1 fL (81-99); Mean Platelet Volume 10.4 fL (7.4-10.4); Monocytes # 0.2 10^3/uL (0.2-0.9); Monocytes % 4.8 %; Neutrophils # 1.8 10^3/uL (1.8-7.7); Neutrophils % 49.3 %; Nucleated Red Blood Cells % 0 %; Platelet Count 123 10^3/cmm (130-400); Red Blood Count 5.14 10^6/uL (4.1-5.3); White Blood Count 3.6 10^3/uL (4.0-10.0)
[2019-05-28 05:52] LABS: INR 1.26 (0.8-1.2)
[2019-05-28 06:01] LABS: Vancomycin Trough 18.5 ug/mL (10-15)
[2019-05-28] MEDS: HYDROcodone-acetaminophen 10-325 mg Tablet 1 TAB PO (06:02)
[2019-05-28] MEDS: tizanidine 4 mg Tablet PO (06:02)
[2019-05-28] MEDS: promethazine 25 mg/mL SDV 1 mL 12.5 MG IM (06:08)
[2019-05-28 06:25] LABS: Slide Review Slide Review Perform
[2019-05-28 06:26] LABS: Alanine Aminotransferase 19 U/L (0-33); Alkaline Phosphatase 85 IU/L (35-105); Anion Gap 18.3 (5-19); Blood Urea Nitrogen 10 mg/dL (6-20); Calcium 9.7 mg/dL (8.5-10.5); Carbon Dioxide 24 mmol/L (22-29); Chloride 103 mmol/L (98-107); Globulin 2.9 g/dL (1.3-4.6); Glomerular Filtration Rate 106.7 mL/min (90-130); Glucose 88 mg/dL (74-109); Potassium 4.3 mmol/L (3.5-5.1); Sodium 141 mmol/L (136-145); Total Bilirubin 0.3 mg/dL (0.15-1.2); Total Protein 6.9 g/dL (6.6-8.7)
[2019-05-28] MEDS: vancomycin 1,000 MG in sodium chloride 0.9% 250 ML 166 MG IV (06:29)
[2019-05-28 06:33] LABS: Aspartate Amino Transferase 13 U/L (0-32)
--- NOTE | 2019-05-28 07:45 | P.DS_ITS ---
Discharge Providers Date of Admission: 05/21/19 13:39 Date of Discharge: Date of Discharge: May 28, 2019 Attending Provider at Admission: Moreno Hollins MD Attending Provider at Discharge: Bonny Montana MD Primary Care Provider: Xavier Salmeron MD Diagnoses at Discharge Discharge Diagnosis (1) Staphylococcus epidermidis bacteremia: Status: Acute Problem details: -noted to have Staph epidermidis bacteremia from culture of central line tip; sensitivity noted -on Vancomycin; will need to complete 14 day course -PICC line placed for continued IV antibiotics -afebrile, no leukocytosis -noted other blood cx growing micrococcus in 1/4 bottles and GPRs in 1/4 bottles (2) Pulmonary embolism: Status: Acute Problem details: -per CTA PE, no evidence of acute PE but minimal chronic PE that has been stable since 08/2018 -had previously been on AC with Eliquis which she can no longer afford so bridging with Coumadin and Lovenox, INR-1.08 -will require INR checks at least twice/week until therapeutic -negative DVT on venous duplex -Echo: EF=55%, no RWMA, trace AR Qualifiers: Pulmonary embolism type: unspecified Chronicity: chronic Acute cor pulmonale presence: without acute cor pulmonale Qualified Code(s): I27.82 - Chronic pulmonary embolism (3) Gastroparesis: Status: Acute Problem details: -on liberal diet Other Information Additional DC diagnoses/information: -Intermittent bradycardia; is on BB, decrease dose -HTN -Hypothyroidism; continue Levothyroxine -GERD: on PPI Reason for Visit Reason for Visit: Reason For Visit: Fever/V/Pain all over Hospital Course Hospital Course: Patient was admitted to the medical surgical floor and started on antibiotics. There was concern for port-A-cath infection given noted drainage, and systemic symptoms of infection so this line was removed and tip cultured. Culture resulted Staph epidermidis with sensitivity noted per culture profile. She also grew some gram positive rods and micrococcus on her initial set of blood cultures, which are likely contaminants, last set of blood cultures have been negative. Patient has been afebrile, with no leukocytosis. Due to noted bacteremia, patient will need to continue IV antibiotics for 14 days so PICC line has been placed for this purpose. Patient has been educated on which signs and symptoms to pay attention to in terms of concern for infection. Patient had been on anticoagulation with Eliquis which she can no longer afford so she was started on bridging with lovenox and coumadin. Her INR remains subtherapeutic so bridging will continue on discharge with INR to be drawn every 2 days until at goal of 2-3. She did have repeat venous duplex which was negative and CTA PE which showed minimal chronic PE in LLL as well as L sub clavian vein occlusion. Discharge Summary: -PICC line is to remain in place until completion of antibiotic course. Current vanc trough is appropriate (15-20) so will continue dose at 1000 mg every 12 hours. Next trough can be drawn just before 4th dose is given to ensure levels remain appropriate. PICC line is to be removed once antibiotic course is complete. -INR is to be drawn every 2 days until therapeutic (2-3) -Patient is to follow up with Dr. Jose Guadalupe Azar on 06/06/19 at 2:30 p.m. Physical Exam Const: COMMON NORMALS: no apparent distress and oriented x3 GENERAL APPEARANCE: cooperative and comfortable ORIENTATION/CONSCIOUSNESS: Yes awake HENMT: COMMON NORMALS: normocephalic, head/scalp atraumatic, hearing grossly normal bilaterally and moist oral mucous membranes HEAD & SCALP: normocephalic and atraumatic Eye: COMMON NORMALS: PERRL, EOMs intact bilaterally and conjunctivae normal CONJUNCTIVA: Yes conjunctivae normal PUPIL: Yes PERRL Neck/C-Spine: COMMON NORMALS: full ROM GENERAL: Yes normal visual inspection and Yes trachea midline Resp: COMMON NORMALS: normal respiratory effort, no retractions, no use of accessory muscles and clear to auscultation bilaterally EFFORT & INSPECTION: Yes able to speak in complete sentences, Yes symmetric chest movement and No tachypneic AUSCULTATION: clear to auscultation bilaterally Cardio: COMMON NORMALS: regular rate, regular rhythm, S1 normal heart sound, S2 normal heart sound and no murmurs RATE: regular rate RHYTHM: regular rhythm HEART SOUNDS: S1 normal and S2 normal GI: COMMON NORMALS: normal to inspection, nondistended, normoactive bowel sounds, soft to palpation and non-tender PALPATION: Yes soft Extremity: COMMON NORMALS: normal to inspection, full ROM and no clubbing, cyanosis or edema; negative for no pedal edema OTHER: -PICC line on RUE Neuro: COMMON NORMALS: oriented x3, moves all extremities, no focal motor deficits, no sensory deficits noted and gait normal Psych: COMMON NORMALS: mental status grossly normal, thought process normal, cooperative, affect normal and speech normal SPEECH: Yes normal speech THOUGHT PROCESS: normal thought process Skin: COMMON NORMALS: no rashes or lesions noted, no jaundice, no petechiae and no mottling GENERAL SKIN EXAM: no rashes or lesions noted Urinary Catheter Management^: Garza: Cath Placed During This Visit: no Discharge Data Data Completed and Pending: Completed Studies During Hospitalization Category Date Time Status CTA chest [CT ang io chest PE protcl [id number]] Routine Cat Scan 05/24/19 18:38 Completed CXRP [XR chest 1V portable [id number]] R outine Exams 05/27/19 13:21 Completed XR chest 1V heather ble [id number] Stat Exams 05/21/19 10:57 Completed CV echo complete* [id number] Routine Ultrasound 05/21/19 14:26 [place] [id number] Urgent Ultrasound 05/21/19 14:26 Completed Pending at discharge Category Date Time Status Blood Culture Sta t Lab 05/21/19 11:17 Results Labs from last 24 hours 05/28/19 05/28/19 05/28/19 05:10 05:10 05:10 WBC RBC Hgb Hct MCV MCH MCHC RDW Plt Count MPV Neut % (Auto) Lymph % (Auto) [place] % (Auto) Eos % (Auto) Baso % (Auto) Neut # (Auto) Lymph # (Auto) [place] # (Auto) Eos # (Auto) Baso # (Auto) Nucleated RBC % (a uto) Nucleated RBCs # PT 16.20 H INR 1.26 H Sodium 141 Potassium 4.3 Chloride 103 Carbon Dioxide 24 Anion Gap 18.3 BUN 10 Creatinine 0.6 GFR Calculation 106.7 Glucose 88 Calcium 9.7 Total Bilirubin 0.3 AST 13 ALT 19 Alkaline Phosphata se 85 Total Protein 6.9 Albumin 4.0 Globulin 2.9 Vancomycin Trough 18.5 H 05/28/19 05:10 WBC 3.6 L RBC 5.14 Hgb 16.0 H Hct 46.8 MCV 91.1 MCH 31.1 MCHC 34.2 RDW 12.0 L Plt Count 123 L MPV 10.4 Neut % (Auto) 49.3 Lymph % (Auto) 42.3 [place] % (Auto) 4.8 Eos % (Auto) 2.5 Baso % (Auto) 0.3 Neut # (Auto) 1.8 Lymph # (Auto) 1.5 [place] # (Auto) 0.2 Eos # (Auto) 0.1 Baso # (Auto) 0.0 Nucleated RBC % (a uto) 0 Nucleated RBCs # 0.0 PT INR Sodium Potassium Chloride Carbon Dioxide Anion Gap BUN Creatinine GFR Calculation Glucose Calcium Total Bilirubin AST ALT Alkaline Phosphata se Total Protein Albumin Globulin Vancomycin Trough Vitals: Last Vital Signs Temp 98.8 F 05/28/19 04:00 Pulse 69 05/28/19 04:00 Resp 20 H 05/28/19 04:00 BP 144/102 05/28/19 04:00 Pulse Ox 96 05/28/19 04:00 Discharge Plan Discharge Patient Disposition: Home Health Service Condition: Stable Prescriptions: New metoprolol succinate 25 mg Tablet Extended Release 24 Hr 25 mg PO DAILY 30 Days Qty: 30 RF: 0 enoxaparin 80 mg/0.8 mL Syringe 70 mg SUBCUT Q12H 7 Days Qty: 14 RF: 0 warfarin 5 mg Tablet 5 mg PO DAILY@1400 30 Days Qty: 30 RF: 0 vancomycin 1,000 mg recon soln 1,000 mg IV Q12H 14 Days Qty: 28 RF: 0 Continued oxybutynin chloride 10 mg Tablet Extended Release 24hr 10 mg PO DAILY RF: 0 ondansetron HCl 4 mg Tablet 4 mg PO Q6H PRN (Reason: Nausea) RF: 0 hydrocodone-acetaminophen 10-325 mg Tablet See Rx Instructions .ROUTE .COMPLEX PRN (Reason: Pain) RF: 0 levothyroxine 75 mcg Tablet 75 mcg PO DAILY RF: 0 promethazine 25 mg Tablet 25 mg PO Q4H PRN (Reason: Nausea) RF: 0 tizanidine 4 mg Capsule 4 mg PO QID PRN (Reason: Sleep) RF: 0 omeprazole 40 mg Capsule,Delayed Release(Dr/Ec) 40 mg PO QAM RF: 0 lisinopril 40 mg Tablet 40 mg PO DAILY 30 Days Qty: 30 RF: 0 Discontinued metoprolol succinate 50 mg Tablet Extended Release 24 Hr 50 mg PO DAILY RF: 0 clonazepam 0.5 mg Tablet 0.5 mg PO BID RF: 0 doxycycline hyclate 100 mg capsule 100 mg PO Q12H 10 Days Qty: 20 RF: 0 Eliquis 5 mg Tablet 5 mg PO BID RF: 0 Discharge Orders: Discharge Order (Routine); Ordered 05/28/19 Ordered By: Bonny Montana Referrals: [facility] [Outside] Jose Guadalupe Azar MD [Hospitalist] - 06/06/19 2:30 pm (Please arrive early to your appointment to complete new patient paperwork. Please bring your discharge instructions from the hospital, current medications in their original bottles, and insurance cards with you to your appointment.) Discharge Diet: Regular Discharge Activity: Resume usual activity Activity Restrictions/Additional Instructions: -Patient is to receive IV antibiotics through midline PICC line that is in place. This is to be discontinued/removed once antibiotic course is completed -Vancomycin trough is to be drawn before 4th dose; should be between 15-20 to continue dose as prescribed. If higher or lower, will require adjustments to [place] ncomycin dose to be followed by Dr. Jose Guadalupe Azar. -Because you are on blood thinners, you will need your blood drawn every 2-3 days to monitor PT, INR to ensure appropriate levels of medication Discharge Attestations Time Spent in Discharge Care*: greater than 30 min Specific Discharge Activities: Specific discharge activities: educating patient, discussing with caseworker protective services/social workers/dc planners, documenting/other paperwork and evaluating patient/reviewing data Quality Metrics Clinical Quality Measures During this hospital stay, did patient experience: None Coding Level of Care Code Acute [employer] Social [employer] Teacher for g Fwd Diagnoses Staphylococcus epidermidis bacteremia R78.81 Pulmonary embolism I27.82 Pulmonary embolism type: unspecified Chronicity: chronic Acute cor pulmonale presence: without acute cor pulmonale Gastroparesis K31.84
[2019-05-28 08:00] VITALS: BP 120/82; PULSE 55; RESP 16; TEMP 36.7; O2SAT 93
[2019-05-28 08:16] VITALS: BP 120/82; PULSE 55; RESP 16; TEMP 36.7; O2SAT 93
[2019-05-28] MEDS: levothyroxine 150 mcg Tablet 75 MCG PO (08:19)
[2019-05-28] MEDS: lisinopril 20 mg Tablet 40 MG PO (08:19)
[2019-05-28] MEDS: metoprolol succinate ER (24 HR) 25 mg Tablet PO (08:20)
[2019-05-28] MEDS: pantoprazole 40 mg SDV IVP (09:04)
--- NOTE | 2019-05-28 10:15 | PC.NURSE ---
Discharge Summary Patient was given discharge instructions and given instructions on self administration of Lovenox. Iv was discontinued and PICC line was flushed with normal saline and dressing was changed with sterile technique. patient verbalized understanding of medications and instructions. follow up appointments made and home health was set up to help with iv administration in patient home. Vitals stable.
== END 2019-05-28 10:21 | disposition home health service (06) | DRG 314 ==
LOC: ER 18:46 → MEDSURG 19:20
PROVIDERS: Family Medicine; Nurse Practitioner Family; Admitting Provider Student in an Organized Health Care Education/Training Program; Emergency Provider Emergency Medicine; PCP Internal Medicine; Visit Provider Family Medicine
DX: T80.219A Unspecified infection due to central venous catheter, initial encounter (principal); A41.1 Sepsis due to other specified staphylococcus; I27.82 Chronic pulmonary embolism; I82.B22 Chronic embolism and thrombosis of left subclavian vein; K31.84 Gastroparesis; Z86.718 Personal history of other venous thrombosis and embolism; Z91.040 Latex allergy status; Z88.8 Allergy status to other drugs, medicaments and biological substances; Z88.1 Allergy status to other antibiotic agents; Z88.0 Allergy status to penicillin; Z79.899 Other long term (current) drug therapy; Z79.01 Long term (current) use of anticoagulants; E03.9 Hypothyroidism, unspecified; Z79.890 Hormone replacement therapy; I10 Essential (primary) hypertension; K21.9 Gastro-esophageal reflux disease without esophagitis; G62.9 Polyneuropathy, unspecified; X58.XXXA Exposure to other specified factors, initial encounter
CPT/HCPCS: 12345; 36415; 51702; 71045; 71275; 80053; 80061; 80202; 80307; 81001; 81003; 83540; 83550; 83605; 84145; 84443; 85025; 85610; 86140; 87040; 87070; 87075; 87077; 87081; 87184; 87186; 87205; 87641; 87804; 87880; 93005; 93306; 93970; 94664; 96360; 96361; 96365; 96366; 96372; 96374; 96375; 99283; 99284; A9270; C1751; C9113; J0743; J1200; J1650; J1756; J1885; J1956; J2001; J2060; J2270; J2405; J2550; J3010; J3370; J3490; J7030; J7050; Q9967

== ENCOUNTER 2019-05-30 09:37 | Outpatient (CLI) | payer MEDICARE, MEDICAID, SELFPAY ==
[2019-05-30 09:52] LABS: Basophils % 0.6 %; Eosinophils # 0.1 10^3/uL (0.0-0.8); Eosinophils % 1.6 %; Hematocrit 40.4 % (37.0-47.0); Hemoglobin 13.6 g/dL (11.5-15.3); Lymphocytes # 2.1 10^3/uL (0.8-4.8); Lymphocytes % 41.9 %; Mean Corpuscular HGB Conc 33.7 g/dL (30.0-36.0); Mean Corpuscular Hemoglobin 30.7 pg (28.0-34.0); Mean Corpuscular Volume 91.2 fL (81-99); Mean Platelet Volume 10.7 fL (7.4-10.4); Monocytes # 0.3 10^3/uL (0.2-0.9); Monocytes % 5.7 %; Neutrophils # 2.5 10^3/uL (1.8-7.7); Neutrophils % 49.6 %; Nucleated Red Blood Cells % 0 %; Platelet Count 227 10^3/cmm (130-400); Red Blood Count 4.43 10^6/uL (4.1-5.3); Red Cell Distribution Width 12.7 % (12.1-15.1); White Blood Count 5.1 10^3/uL (4.0-10.0)
[2019-05-30 10:03] LABS: INR 1.65 (0.8-1.2)
[2019-05-30 10:08] LABS: Alanine Aminotransferase 36 U/L (0-33); Albumin Level 4.4 g/dL (3.5-5.2); Alkaline Phosphatase 92 IU/L (35-105); Anion Gap 15.1 (5-19); Aspartate Amino Transferase 21 U/L (0-32); Blood Urea Nitrogen 9 mg/dL (6-20); Carbon Dioxide 25 mmol/L (22-29); Chloride 103 mmol/L (98-107); Globulin 3.9 g/dL (1.3-4.6); Glomerular Filtration Rate 89.3 mL/min (90-130); Glucose 101 mg/dL (65-115); Potassium 4.1 mmol/L (3.5-5.1); Sodium 139 mmol/L (136-145); Total Bilirubin 0.3 mg/dL (0.15-1.2); Total Protein 8.3 g/dL (6.6-8.7); Vancomycin Trough 13.2 ug/mL (10-15)
[2019-05-30 10:11] LABS: Slide Review Slide Review Perform
== END 2019-05-30 09:38 | disposition home or self-care (01) ==
PROVIDERS: Visit Provider Family Medicine
DX: T80.218A Other infection due to central venous catheter, initial encounter (principal)
CPT/HCPCS: 80053; 80202; 85025; 85610

== ENCOUNTER → 2019-06-06 16:12 | Outpatient (BNVA) | payer MEDICARE, MEDICAID, SELFPAY | PROVIDERS: Referring Provider Family Medicine; Visit Provider Family Medicine | DX: K31.84 Gastroparesis (principal); R78.81 Bacteremia; I27.82 Chronic pulmonary embolism; N30.10 Interstitial cystitis (chronic) without hematuria; I10 Essential (primary) hypertension; F41.9 Anxiety disorder, unspecified; F32.9 Major depressive disorder, single episode, unspecified; G89.29 Other chronic pain; Z79.01 Long term (current) use of anticoagulants | CPT/HCPCS: 80053; 80202; 82607; 83735; 84100; 85025; 85610 ==

== ENCOUNTER 2019-06-18 13:54 | Outpatient (CLI) | payer MEDICARE, MEDICAID, SELFPAY ==
--- NOTE | 2019-06-18 14:15 | USCV_ITS ---
Bing Chatman Age: 49 Gender: F : 1970 Exam Date: 06/18/2019 14:49 Ordering Phys: Chase Alegria MD Technologist: Claudine De Anda Exam Location: [facility] Indication: JUG AND SC FOR PATENCY HISTORY: GASTROPARESIS PROCEDURES: JUGULAR AND SUBCLAVIAN VEINS FOR PATENCY FINDINGS: Scanned bilateral jugular and subclavian veins for patency. Left side dramatically smaller than rt. Both sides patent. Spontaneous blood flow was noted in both these veins, bilaterally CONCLUSIONS Patent jugular and subclavian veins bilaterally. The jugular and the subclavian veins on the left side appeared to be relatively of small caliber No evidence of thrombosis in the above-mentioned veins Dr Martha Collado MD [facility] (Electronically Signed) Final Date: 18 June 2019 20:29 S
== END 2019-06-18 13:55 | disposition home or self-care (01) ==
PROVIDERS: PCP Family Medicine; Visit Provider Surgery
DX: I87.2 Venous insufficiency (chronic) (peripheral) (principal)
CPT/HCPCS: 93970

== ENCOUNTER → 2019-10-22 11:09 | Outpatient (BNVA) | payer MEDICARE, MEDICAID, SELFPAY | PROVIDERS: PCP Family Medicine; Visit Provider Family Medicine | DX: I82.409 Acute embolism and thrombosis of unspecified deep veins of unspecified lower extremity (principal); N30.20 Other chronic cystitis without hematuria; R10.9 Unspecified abdominal pain; R35.0 Frequency of micturition; I10 Essential (primary) hypertension; I27.82 Chronic pulmonary embolism; K31.84 Gastroparesis | CPT/HCPCS: 81000; 85610; 87086 ==